=== PATIENT | male | born 1960 | race Caucasian/White ===

== ENCOUNTER 2017-12-18 12:03 | Outpatient (REF) | payer BC, OTHER, SELFPAY ==
[2017-12-19 10:39] LABS: PSA, Diagnostic 4.6 ng/ml (0-3.5)
[2017-12-19 12:04] LABS: Hepatitis C Ab w Rflx HCV PCR Negative (NEGAT)
== END 2017-12-18 12:23 ==
LOC: NCHCN 12:03
PROVIDERS: Visit Provider Nurse Practitioner
DX: C61 Malignant neoplasm of prostate (principal); Z11.59 Encounter for screening for other viral diseases
CPT/HCPCS: 86803; 84153

== ENCOUNTER 2018-02-04 16:30 | Outpatient (REF) | payer BC, OTHER, SELFPAY | END 2018-02-04 16:50 | LOC: NCHCN 16:30 | PROVIDERS: Visit Provider Nurse Practitioner | DX: C61 Malignant neoplasm of prostate (principal) | CPT/HCPCS: 84154 ==

== ENCOUNTER 2018-07-03 01:28 | Outpatient (CLI) | payer BC, OTHER, SELFPAY ==
--- NOTE | 2018-07-03 07:30 | MERGE_ITS ---
*[facility]* *[facility]* [address] [place] [address] Date of study: 07/03/2018 Transthoracic Echocardiography M-mode, complete 2D, complete spectral Doppler, and color Doppler *STUDY CONCLUSIONS* Impressions: Functionally bicuspid aortic valve with mod/severe regurgitation. Summary: 1. Left ventricle: The cavity size was normal. Wall thickness was at the upper limits of normal. Systolic function was at the lower limits of normal. The estimated ejection fraction was 50-55%. Wall motion was normal; there were no regional wall motion abnormalities. 2. Aortic valve: Mildly calcified annulus. Functionally bicuspid; mildly thickened, mildly calcified leaflets; fusion of the right-left coronary commissure. Valve mobility was mildly restricted. Transvalvular velocity was minimally increased. There was very mild stenosis. There was moderate to severe regurgitation. Valve area (VTI): 1.8cm^2. Valve area (Vmax): 1.6cm^2. Valve area (Vmean): 1.7cm^2. 3. Mitral valve: There was mild regurgitation. 4. Left atrium: The atrium was moderately dilated. 5. Right ventricle: The cavity size was mildly dilated. Wall thickness was normal. Systolic function was normal. 6. Pulmonic valve: Peak gradient (S): 3.2mm Hg. 7. Pulmonary arteries: PA peak pressure: 33mm Hg (S). *PATIENT PRESENTATION* Height: 170.2cm ((67in) ) S/D Pressure: 136 / 75 Weight: 93kg ((204.6lb) ) BSA: 2.13m^2 Test start time: 07:45 AM. Test stop time: 08:45 AM. PERFORMING Unknown ORDERING Maya Rubin REFERRING Maya Rubin PERFORMING [facility] [employer]PER[employer] HELPER RT Lissa Pagan)(CT), [facility] *PROCEDURE DATA* Procedure information: The patient was identified by two identifiers. This study was interpreted by [facility]. Pertinent images and digital data are archived for permanent storage and are available for subsequent review. No prior study was available for comparison. Study status: Routine. Transthoracic echocardiography. M-mode, complete 2D, complete spectral Doppler, and color Doppler. A Transthoracic Echocardiogram was performed. Scanning was performed from the parasternal, apical, subcostal, and suprasternal notch acoustic windows. Images were obtained using an [id number] cardiac ultrasound machine. Image quality was adequate. Study completion: The patient tolerated the procedure well. History: PMH: Murmur r01.1 *CARDIAC ANATOMY* Left ventricle: The cavity size was normal. Wall thickness was at the upper limits of normal. Systolic function was at the lower limits of normal. The estimated ejection fraction was 50-55%. Wall motion was normal; there were no regional wall motion abnormalities. Aortic valve: Mildly calcified annulus. Functionally bicuspid; mildly thickened, mildly calcified leaflets; fusion of the right-left coronary commissure. Valve mobility was mildly restricted. Doppler: Transvalvular velocity was minimally increased. There was very mild stenosis. There was moderate to severe regurgitation. VTI ratio of LVOT to aortic valve: 0.44. Valve area (VTI): 1.8cm^2. Indexed valve area (VTI): 0.8cm^2/m^2. Peak velocity ratio of LVOT to aortic valve: 0.4. Valve area (Vmax): 1.6cm^2. Indexed valve area (Vmax): 0.8cm^2/m^2. Mean velocity ratio of LVOT to aortic valve: 0.43. Valve area (Vmean): 1.7cm^2. Indexed valve area (Vmean): 0.8cm^2/m^2. Mean gradient (S): 16.3mm Hg. Peak gradient (S): 31.2mm Hg. Aorta: Aortic root: The aortic root was mildly dilated. Ascending aorta: The ascending aorta was at upper normal limits. Aortic arch: The aortic arch was normal in size. Mitral valve: Mildly thickened leaflets. Mobility was not restricted. Doppler: Transvalvular velocity was within the normal range. There was no evidence for stenosis. There was mild regurgitation. Valve area by pressure half-time: 2.9cm^2. Indexed valve area by pressure half-time: 1.3cm^2/m^2. Left atrium: The atrium was moderately dilated. Right ventricle: The cavity size was mildly dilated. Wall thickness was normal. Systolic function was normal. Pulmonic valve: Doppler: Transvalvular velocity was within the normal range. There was no evidence for stenosis. There was trivial regurgitation. Peak gradient (S): 3.2mm Hg. Tricuspid valve: Structurally normal valve. Doppler: Transvalvular velocity was within the normal range. There was no evidence for stenosis. There was mild regurgitation. Pulmonary artery: Pulmonary systolic pressure was at the upper limits of normal. Right atrium: The atrium was normal in size. Pericardium: There was no pericardial effusion. Systemic veins: Inferior vena cava: Well visualized. The vessel was patent and mildly dilated in size. The respirophasic diameter changes were in the normal range (greater than or equal to 50%), consistent with normal central venous pressure. Baseline ECG: Bradycardia. Measurements Left ventricle Value Reference LV ID, ED, PLAX 5.6 cm 3.5 - 6.0 LV ID, ES, PLAX 3.9 cm 2.1 - 4.0 LV PW thickness, ED, PLAX 1.0 cm LV end-diastolic volume, 1-p A2C 165 ml LV ejection fraction, 1-p A2C 53 % LV end-diastolic volume, 1-p A4C 192 ml LV ejection fraction, 1-p A4C 52 % LV e', lateral 0.124 m/sec LV E/e', lateral 5 LV e', medial 0.069 m/sec LV E/e', medial 9 LV e', average 0.097 m/sec LV E/e', average 6 Ventricular septum Value Reference IVS thickness, ED, PLAX 1.0 cm LVOT Value Reference LVOT ID, A-P 2.3 cm LVOT area 4.1 cm^2 LVOT peak velocity, S 1.11 m/sec LVOT mean velocity, S 0.81 m/sec LVOT VTI, S 28.1 cm LVOT peak gradient, S 5 mm Hg LVOT mean gradient, S 2.9 mm Hg Stroke volume (SV), LVOT DP 115 ml Stroke index (SV/bsa), LVOT DP 54 ml/m^2 Aortic valve Value Reference Aortic valve peak velocity, S 2.8 m/sec Aortic valve mean velocity, S 1.91 m/sec Aortic valve VTI, S 64.0 cm Aortic mean gradient, S 16.3 mm Hg Aortic peak gradient, S 31.2 mm Hg VTI ratio, LVOT/AV 0.44 Aortic valve area, VTI 1.8 cm^2 Velocity ratio, peak, LVOT/AV 0.4 Aortic valve area, peak velocity 1.6 cm^2 Velocity ratio, mean, LVOT/AV 0.43 Aortic valve area, mean velocity 1.7 cm^2 Aortic valve area/bsa, mean velocity 0.8 cm^2/m^2 Aortic regurg peak velocity 1.08 m/sec Aortic regurg deceleration 355 cm/s^2 Aortic regurg deceleration time 360 ms Aortic regurg pressure half-time 104 ms Aortic regurg peak gradient 4.7 mm Hg Aorta Value Reference Aortic root ID, ED 4.0 cm Ascending aorta ID, A-P, S 3.6 cm Aortic arch ID, innominate-LCCA 3.0 cm 2.0 - 3.6 Left atrium Value Reference LA ID, A-P, ES 4.6 cm LA ID/bsa, A-P 2.2 cm/m^2 <=2.2 LA area, ES, A4C (H) 26.9 cm^2 8.8 - 23.4 LA area, ES, A2C 21 cm^2 LA volume/bsa, ES, 1-p A4C 51 ml/m^2 LA volume, ES, 2-p 77 ml LA volume/bsa, ES, 2-p 36 ml/m^2 LA/aortic root ratio 1.16 Mitral valve Value Reference Mitral E-wave peak velocity 0.61 m/sec Mitral A-wave peak velocity 0.5 m/sec Mitral deceleration time (H) 266 ms 150 - 230 Mitral pressure half-time 77 ms Mitral E/A ratio, peak 1.22 Mitral valve area, PHT, DP 2.9 cm^2 Mitral regurg vena contracta 0.8 cm Pulmonary veins Value Reference Pulmonary vein peak velocity, S 0.61 m/sec Pulmonary vein peak velocity, D 0.5 m/sec Pulmonary vein velocity ratio, peak, 1.22 S/D Pulmonary vein A-wave reversal peak 0.3 m/sec velocity Pulmonary arteries Value Reference PA pressure, S, DP (H) 33 mm Hg <=30 Tricuspid valve Value Reference Tricuspid regurg peak velocity 2.6 m/sec Tricuspid peak RV-RA gradient 26.5 mm Hg Right atrium Value Reference RA area, ES, A4C 13.9 cm^2 8.3 - 19.5 Systemic veins Value Reference Estimated CVP 10 mm Hg Right ventricle Value Reference RV pressure, S, DP (H) 37 mm Hg <=30 Pulmonic valve Value Reference Pulmonic peak gradient, S 3.2 mm Hg Legend: (L) and (H) jenifer values outside specified reference range. I have personally reviewed the images and have reviewed and edited the reported findings. Electronically signed by Shaka Shukla 07/03/2018 11:17
== END 2018-07-03 01:48 ==
PROVIDERS: PCP Family Medicine; Visit Provider Family Medicine
DX: R01.1 Cardiac murmur, unspecified (principal); I35.2 Nonrheumatic aortic (valve) stenosis with insufficiency
CPT/HCPCS: 93306

== ENCOUNTER 2018-11-30 19:05 | Emergency (ER) | payer BC, OTHER, SELFPAY ==
[2018-11-30 19:11] VITALS: BP 151/76; PULSE 70; RESP 16; TEMP 36.6; O2SAT 97
--- NOTE | 2018-11-30 20:24 | ED.GENADUL_ITS ---
Discharge Plan Disposition Patient Disposition: HOME Condition: Improving Discharge Details Chief Complaint: EarProblem Clinical Impression: Acute foreign body of right ear canal Primary Care Provider: Maya Rubin ED Provider: Gilmar Sin Home Meds and New Rx's Prescriptions: No Action No Known Home Meds RF: 0 Discharge Instructions Instructions: Ear Foreign Body (ED) Additional Instructions: For any further discomfort you may use your typical [id number] pain medication just take as directed on packaging. Follow-up with your primary care provider as needed for reassessment and feel free to return for any new or significant worsening symptoms Referrals: Maya Rubin [Primary Care Provider] - (As needed for reassessment) Discharge Data Discharge Date/Time-TO BE ENTERED AT DEPARTURE: 11/30/18 20:45 Medical Decision Making Patient presenting to the emergency department for chief complaint of bug in right ear. Patient states just prior to arrival [place] and a bug flew in his right ear. Patient denies any other symptoms. Physical exam shows what appears to be a moth in the right ear. 2 mL's of 2% lidocaine were injected to the ear and allowed to set until patient was asymptomatic. Suction and irrigation was utilized to remove the bug that appears to be moth like. After removal there is does appear to be a slight abrasion to the ear canal but otherwise TM is intact and no other abnormalities noted. I feel patient is able to be safely discharged with no further treatment but patient was encouraged to return for any new or worsening symptoms otherwise follow-up primary care provider. After discussion of diagnosis and plan of care patient has no further needs, questions, or concerns and states clear understanding to return to the emergency department for any worsening symptoms. HPI General Mode of arrival: ambulatory . Date/Time Provider Initiated Documentation: 11/30/18 19:30 . Limitations to Documentation: no limitations . Information obtained by: patient . History of Present Illness 58 year old M presents to the emergency department with the chief complaint of bug in right ear , described as moderate, with intensity rated at 5. Quality is described as sharp, and is localized to the right (ear). Patient started experiencing this hour(s) (1) and it has been constant. No relieving factors improve symptom(s), No exacerbating factors reported . Patient notes no other symptoms.. Patient did receive the following treatments prior to arrival, none Related Data Home Medications Medication Instructions Recorded Confirmed Unknown [No Known Home Meds] 11/30/18 11/30/18 Allergies Allergy/AdvReac Type Severity Reaction Status Date / Time No Known Allergies Allergy Unverified 11/30/18 19:13 General Stated Complaint: EarProblem GEOVANNY: 4 Review of Systems ENT Ears, Nose, Mouth, and Throat: Reports as per HPI, Denies dizziness, Denies ear discharge and Reports otalgia Neurologic Neurologic: Denies dizziness [facility] Medical History Heart murmur (Acute) Surgical History Colonoscopy - MAC (02/08/16) History of appendectomy (Chronic) History of right knee joint replacement (Acute) [facility] (12/15/14) RACHAEL GRAY Social History Smoking/Tobacco Use Status: Never Alcohol Intake: current Alcohol Intake frequency: a few times a month Drug use: Never Exam Const General: cooperative, no acute distress and not ill appearing Orientation: alert and awake HENMT Ears: hearing grossly normal bilaterally, external ears normal and EAC abnormal foreign body on the right (Visible insect) Mouth: moist mucous membranes Resp Effort & Inspection: normal respiratory effort, able to speak in complete sentences and no respiratory distress Course Vital Signs Vital signs: Vital Signs Temperature 36.6 C 11/30/18 19:11 Pulse 70 11/30/18 19:11 Respiratory Rate 16 11/30/18 19:11 Blood Pressure 151/76 H 11/30/18 19:11 Pulse Oximetry 97 11/30/18 19:11 Temperature 36.6 C 11/30/18 19:11 Temperature Source Skin 11/30/18 19:11 Pulse 70 11/30/18 19:11 Respiratory Rate 16 11/30/18 19:11 Respiratory Effort Non-Labored 11/30/18 19:14 Blood Pressure 151/76 H 11/30/18 19:11 Pulse Oximetry 97 11/30/18 19:11 Pain Level 0 11/30/18 19:14
[2018-11-30 20:37] VITALS: BP 151/76; PULSE 70; RESP 16; O2SAT 97
== END 2018-11-30 20:45 | disposition home or self-care (01) ==
PROVIDERS: Emergency Provider Nurse Practitioner Family; PCP Family Medicine
DX: T16.1XXA Foreign body in right ear, initial encounter (principal)
CPT/HCPCS: 99282

== ENCOUNTER 2019-02-17 03:24 | Outpatient (CLI) | payer BC, OTHER, SELFPAY ==
[2019-02-17 13:17] LABS: CREATININE 0.77 mg/dL (0.70-1.30)
--- NOTE | 2019-02-17 13:42 | DI.CT_ITS ---
EXAM: CT BRAIN CTA CLINICAL HISTORY: ANEURYSM SCREENING, BICUSPID AORTIC VALVE, Q23.1 TECHNIQUE: Imaging Protocol: Axial CT angiography was performed with multi-slice acquisition and mu lti-planar and/or 3D reconstructions. CONTRAST MATERIAL: Intravenous: Omnipaque 350 Contrast volume:structured data in ml Contrast route:I V - Oral: yes / no COMPARISON: No exams were available for comparison FINDINGS: Carotid Arteries: Petrous: Normal. Cavernous: Normal. Cerebral: Normal. Middle Cerebral Arteries: Right: No aneurysm, occlusion or significant stenosis. Left: No aneurysm, occlusion or significant stenosis. Anterior Cerebral Arteries: Right: No aneurysm, occlusion or significant stenosis. Left: No aneurysm, occlusion or significant stenosis. Posterior cerebral arteries: Right: No aneurysm, occlusion or significant stenosis. Left: No aneurysm, occlusion or significant stenosis. Vertebral Arteries: Right: No aneurysm, occlusion or significant stenosis. Left: No aneurysm, occlusion or significant stenosis. Basilar Artery: No aneurysm, occlusion or significant stenosis. Small Vessels: No evidence of beading. CT head: The ventricles and sulci are consistent with the patient's age. Ventricles are intact. The basilar cisterns are patent. No acute intracranial hemorrhage, midline shift or mass effect is identified. There is mucosal thickening in the ethmoid air cells and maxillary sinuses bilaterally. There is muc osal thickening in the left sphenoid sinus. The mastoid air cells are well pneumatized. The calvari um is intact. IMPRESSION: 1. Normal CTA examination of the [place]. No evidence of a cerebral aneurysm. 2. No acute intracranial process. 3. Paranasal sinusitis. DATA REPOSITORY: All CT scans at this facility are submitted to the National Radiology Data Registry (NRDR) Dose Index Registry (DIR) with the [employer] (ACR). RADIATION OPTIMIZATION: All CT scans at this facility use at least one of these dose optimization te chniques: automated exposure control; mA and/or kV adjustment per patient size (includes targeted exa ms where dose is matched to clinical indication); or iterative reconstruction.
[2019-02-17] MEDS: Omnipaque 350 MG/ML 100 ML BTL IJ (14:04)
--- NOTE | 2019-02-17 15:01 | DI.VRAD_ITS ---
PROCEDURE INFORMATION: Exam: CT Angiography Head With Contrast Exam date and time: 02/17/2019 2:10 PM Age: 58 years old Clinical indication: Other: Aneurysm screening bicuspid aortic valve TECHNIQUE: Imaging protocol: Computed tomography angiography of the head with intravenous contrast. 3D rendering: MIP and/or 3D reconstructed images were created by the technologist. Radiation optimization: All CT scans at this facility use at least one of these dose optimization techniques: automated exposure control; mA and/or kV adjustment per patient size (includes targeted exams where dose is matched to clinical indication); or iterative reconstruction. Contrast material: OMNI 350; Contrast volume: 70 ml; Contrast route: IV; COMPARISON: No relevant prior studies available. FINDINGS: Right internal carotid artery: Unremarkable. Intracranial segment is patent with no significant stenosis. No aneurysm. Right anterior cerebral artery: Unremarkable. No occlusion or significant stenosis. No aneurysm. Right middle cerebral artery: Unremarkable. No occlusion or significant stenosis. No aneurysm. Right posterior cerebral artery: Unremarkable. No occlusion or significant stenosis. No aneurysm. Right vertebral artery: Unremarkable. No occlusion or significant stenosis. No aneurysm. Left internal carotid artery: Unremarkable. Intracranial segment is patent with no significant stenosis. No aneurysm. Left anterior cerebral artery: Unremarkable. No occlusion or significant stenosis. No aneurysm. Left middle cerebral artery: Unremarkable. No occlusion or significant stenosis. No aneurysm. Left posterior cerebral artery: Unremarkable. No occlusion or significant stenosis. No aneurysm. Left vertebral artery: Unremarkable. No occlusion or significant stenosis. No aneurysm. Basilar artery: Unremarkable. No occlusion or significant stenosis. No aneurysm. IMPRESSION: No acute findings. No cerebral aneurysm. PROCEDURE INFORMATION: Exam: CT Head Without Contrast Exam date and time: 02/17/2019 2:10 PM Age: 58 years old Clinical indication: Other: Aneurysm screening bicuspid aortic valve TECHNIQUE: Imaging protocol: Computed tomography of the head without contrast. COMPARISON: No relevant prior studies available. FINDINGS: Brain: Normal. No hemorrhage. Unremarkable white matter. No mass effect. Ventricles: Normal. No ventriculomegaly. Bones/joints: Unremarkable. No acute fracture. Sinuses: There is mucosal thickening in the left sphenoid the maxillary sinuses. Mastoid air cells: Visualized mastoid air cells are well aerated. Soft tissues: Unremarkable. IMPRESSION: No acute intracranial abnormality. Dictated and Authenticated by: Galilea Theodore MD. Ordering:AUSTIN Elmore MD
== END 2019-02-17 03:44 ==
PROVIDERS: PCP Family Medicine; Visit Provider Internal Medicine Cardiovascular Disease
DX: I35.2 Nonrheumatic aortic (valve) stenosis with insufficiency (principal); I10 Essential (primary) hypertension; J32.8 Other chronic sinusitis; Z13.89 Encounter for screening for other disorder
CPT/HCPCS: 36415; 70496; 82565; J3490

== ENCOUNTER 2019-05-14 14:19 | Outpatient (REF) | payer BC, OTHER, SELFPAY ==
[2019-05-14 20:47] LABS: ALT 30 U/L (16-63); AST 21 U/L (15-37); Albumin 4.2 g/dL (3.4-5.0); Alkaline Phosphatase 107 U/L (46-116); Anion Gap 10.5 mmol/L (3-11); BUN 20 mg/dL (7-18); Bilirubin, Total 0.6 mg/dL (0.2-1.0); CO2 24.5 mmol/L (21.0-32.0); CREATININE 1.06 mg/dL (0.70-1.30); Calcium 9.3 mg/dL (8.5-10.1); Calculated LDL 105 mg/dL (<100); Chloride 101 mmol/L (98-107); Cholesterol 194 mg/dL (<200); Glucose 87 mg/dL (74-106); HDL Cholesterol 75 mg/dL (40-60); Potassium 4.4 mmol/L (3.5-5.1); Sodium 136 mmol/L (136-145); Total Protein 7.8 g/dL (6.4-8.2); Triglyceride 74 mg/dL (<150)
== END 2019-05-14 14:39 ==
LOC: NCHCN 14:19
PROVIDERS: PCP Family Medicine; Visit Provider Family Medicine
DX: Z00.00 Encounter for general adult medical examination without abnormal findings (principal); C61 Malignant neoplasm of prostate; Z13.220 Encounter for screening for lipoid disorders; Z13.228 Encounter for screening for other metabolic disorders
CPT/HCPCS: 80053; 80061; 84153

== ENCOUNTER 2019-07-16 02:58 | Outpatient (CLI) | payer BC, OTHER, SELFPAY ==
--- NOTE | 2019-07-16 07:32 | DI.US_ITS ---
APPROVED REPORT EXAM: Comprehensive 2D, Doppler, and color-flow Echocardiogram Patient Location: Out-Patient Research Interviewer: Em Renee RDCS (AE) Indications: Bicuspid Aortic Valve, Aortic Regurgitation Other Information Study Quality: Good Conclusion Left Ventricle : The left ventricle is normal size. The left ventricular systolic function is normal. The left ventricular ejection fraction is within the normal range. There is normal left ventricular wall thickness. There is normal LV segmental wall motion. Diastolic function is indeterminate. LVEF i s 55%. Right Ventricle : The right ventricle is normal size. The right ventricular systolic function is norm al. The RVSP is 19.9mmHg. Atria : The left atrium size is normal. The right atrium size is normal. Aortic Valve : The Aortic valve is sclerotic. Aortic valve is bicuspid. Mild aortic stenosis. Moderat e aortic regurgitation. Mitral Valve : There is mitral annular calcification. No evidence of mitral valve stenosis. Trace angie ral regurgitation. Tricuspid Valve : The tricuspid valve is normal in structure. There is no tricuspid valve stenosis. T race to mild tricuspid regurgitation. Great Vessels : IVC is normal in size and collapses >50% with inspiration. The aortic root is dilated (4.1cm) The ascending aorta is mildly dilated. Echocardiogram dated 07/03/2017: There is no significant change. Wall motion Left Ventricle The left ventricle is normal size. The left ventricular systolic function is normal. The left ventric ular ejection fraction is within the normal range. There is normal left ventricular wall thickness. T here is normal LV segmental wall motion. Diastolic function is indeterminate. There is no ventricular septal defect visualized. LVEF is 55%. Right Ventricle The right ventricle is normal size. The right ventricular systolic function is normal. The RVSP is 19 .9mmHg. Atria The left atrium size is normal. The right atrium size is normal. The interatrial septum is intact wit h no evidence for an atrial septal defect. Aortic Valve The Aortic valve is sclerotic. Aortic valve is bicuspid. Mild aortic stenosis. Moderate aortic regurg itation. Mitral Valve There is mitral annular calcification. No evidence of mitral valve stenosis. Trace mitral regurgitati on. Tricuspid Valve The tricuspid valve is normal in structure. There is no tricuspid valve stenosis. Trace to mild tricu spid regurgitation. Pulmonic Valve The pulmonary valve is normal in structure. There is no pulmonic valvular stenosis. Trace pulmonic re gurgitation. Great Vessels The aortic root is dilated (4.1cm) The ascending aorta is mildly dilated. IVC is normal in size and c ollapses >50% with inspiration. Pericardium There is no pericardial effusion. There is no pleural effusion. 2D Dimensions IVSD d PLAX 0.96 cm M: 0.6-1.2 LV Vol A2C d MOD 191.2 mL LVPW d PLAX 0.99 cm M: 0.6 - 1.2 LV Vol A4C d MOD 150.9 mL LVID d PLAX 5.45 cm M: 4.2 - 5.8 LA vol/ BSA A2C s A-L 40.6 mL/m2 LVDs 4.15 cm M: 2.5 - 4.0 LA vol/ BSA A4C s A-L 36.4 mL/m2 Ao Root d 4.10 cm M: 3.1 - 3.7 LA Vol/ BSA Biplane s A-L 41.6 mL/m2 RA Area A4C 15.44 cm2 LA Area A4C s MOD 23.50 cm2 RA Vol/ BSA A4C s A-L 19.9 mL/m2 LA Area A2C s MOD 22.93 cm2 Ao Asc Diam d 3.80 cm M: 2.6 - 3.4 LV EF A4C MOD 53.5 % LV EF Teichholz 45.8 % LV EF A2C MOD 51.9 % LVEF (Torres's) 52.12 % M: 52 - 72 LV EF Biplane MOD 52.1 % LV Volume 131.97 mL M: 62 - 150 SV 92.80 mL LV Volume Index 65.00 mL/m2 M: 34 - 74 SV Index 45.40 mL/m2 LV Vol Biplane MOD 176.9 mL FS 23.05 % M-Mode TAPSE 2.03 cm (M/F) >1.7 LV Diastology MV E' medial 0.069 (>0.07 m/s) E/A Ratio 0.8 LV E/e MED 7.75 (<14) MV E Vmax 0.54 (0.4-1.3 m/s) MV E' lateral 0.083 (>0.1 m/s) MV A Vmax 0.65 (0.4-1.3 m/s) LV E/e LAT 6.45 (<14) MV E/A Ratio 0.78 MV E/E' medial 7.76 MV E/E' lateral 6.47 Aortic Valve LVOT Area 2.96 cm2 AoV Area Vmax 1.52 cm2 LVOT Vmax 1.24 m/s AoV Area/ BSA (Vmax) 0.75 cm2/m2 LVOT Mean Chuy. 0.83 m/s BREONNA Mean Chuy. 1.50 cm2 LVOT Peak Grad 6.1 mmHg BREONNA Mean Chuy. Index 0.74 cm2/m2 LVOT Mean Grad 3.2 mmHg AR DT 2243 msec LVOT VTI 0.284 m AR PHT 650 msec LVOT Diam s 1.90 cm AoV Vmax 2.40 m/s Velocity Ratio 0.51 AoV Mean Chuy. 1.62 m/s AoV Peak Grad 23.0 mmHg LVOT SV 84.05 mL AoV Mean Grad 12.1 mmHg AoV VTI 0.532 m AoV Area VTI 1.58 cm2 AoV Area/ BSA (VTI) 0.78 cm/m2 Mitral Valve MV DT 332 (160-240 msec) MV PHT 96 msec MV Area PHT 2.29 cm2 Pulmonary Valve PV Vmax 0.80 (0.5-1.5 m/s) RVOT Peak Gr. 1.89 mmHg PV Peak Grad 2.5 mmHg RVOT Mean Gr. 0.90 mmHg PV Mean Grad 1.6 mmHg RVOT VTI 0.153 m PV VTI 0.228 m RVOT Vmax 0.69 m/s Tricuspid Valve TR Peak Grad 16.8 mmHg TR Vmax 2.05 m/s RA Pressure 3.00 mmHg RVSP (TR) 19.9 mmHg
== END 2019-07-16 03:18 ==
PROVIDERS: PCP Family Medicine; Visit Provider Internal Medicine Cardiovascular Disease
DX: I35.1 Nonrheumatic aortic (valve) insufficiency (principal); I36.1 Nonrheumatic tricuspid (valve) insufficiency; I10 Essential (primary) hypertension
CPT/HCPCS: 93306

== ENCOUNTER 2020-01-19 04:15 | Outpatient (CLI) | payer BC, OTHER, SELFPAY ==
[2020-01-20 17:46] LABS: Free PSA/PSA Ratio 0.08 ratio
== END 2020-01-19 04:35 ==
PROVIDERS: PCP Family Medicine; Visit Provider Nurse Practitioner Gerontology
DX: R97.20 Elevated prostate specific antigen [PSA] (principal); Z85.46 Personal history of malignant neoplasm of prostate
CPT/HCPCS: 36415; 84154

== ENCOUNTER 2020-04-07 13:48 | Outpatient (REF) | payer BC, OTHER, SELFPAY ==
[2020-04-09 09:04] LABS: COVID-19 RT-PCR UVMMC Result Negative (Negative)
== END 2020-04-07 13:49 | disposition home or self-care (01) ==
LOC: NCHCN 13:48
PROVIDERS: PCP Family Medicine; Visit Provider Family Medicine
DX: Z20.822 Contact with and (suspected) exposure to COVID-19 (principal)
CPT/HCPCS: U0003

== ENCOUNTER 2020-06-01 22:18 | Outpatient (REF) | payer BC, OTHER, SELFPAY ==
[2020-06-03 16:33] LABS: COVID-19 RT-PCR UVMMC Result Negative (Negative)
== END 2020-06-01 22:19 | disposition home or self-care (01) ==
LOC: NCHCN 22:18
PROVIDERS: PCP Family Medicine; Visit Provider Family Medicine
DX: Z20.822 Contact with and (suspected) exposure to COVID-19 (principal)
CPT/HCPCS: U0003

== ENCOUNTER 2020-07-21 02:35 | Outpatient (CLI) | payer BC, OTHER, SELFPAY ==
[2020-07-21 18:23] LABS: PSA, Diagnostic 6.8 ng/mL (0.0-4.5)
== END 2020-07-21 02:36 | disposition home or self-care (01) ==
LOC: LBO 02:35
PROVIDERS: PCP Family Medicine; Visit Provider Nurse Practitioner Gerontology
DX: R97.20 Elevated prostate specific antigen [PSA] (principal)
CPT/HCPCS: 36415; 84153

== ENCOUNTER 2020-08-08 13:22 | Outpatient (RCR) | payer BC, OTHER, SELFPAY ==
--- NOTE | 2020-08-08 13:30 | HOLTER_ITS ---
APPROVED REPORT This is a 48-hour Holter monitor Predominant rhythm was sinus with an average heart rate of 75. Minimum was 55, maximum 108 There were rare atrial premature beats. There were 2 brief self-limited atrial runs, the longest of which was 6 beats in duration There were frequent ventricular ectopic beats. They comprised 10.2% of total beats. There were occa sional couplets. There were 3 runs of nonsustained ventricular tachycardia, the longest of which was 4 beats in duration There was no atrial fibrillation, no high-grade AV block, no pauses greater than 3 seconds No patient symptoms were reported
== END 2020-08-24 23:59 | disposition home or self-care (01) ==
LOC: RT 13:22
PROVIDERS: PCP Family Medicine; Visit Provider Family Medicine
DX: I49.3 Ventricular premature depolarization (principal); I49.1 Atrial premature depolarization; I47.2 Ventricular tachycardia
CPT/HCPCS: 93225; 93226

== ENCOUNTER 2020-08-18 02:56 | Outpatient (CLI) | payer BC, OTHER, SELFPAY ==
--- NOTE | 2020-08-18 | DI.RAD_ITS ---
Exam(s) XR SHOULDER LT COMPLETE 2+V EXAM: XR SHOULDER LT COMPLETE 2+V CLINICAL HISTORY: LT SHOULDER PAIN, M25.512. TECHNIQUE: 2D digital imaging was performed. COMPARISON: No exams were available for comparison FINDINGS: No evidence of acute fracture nor dislocation. There are significant degenerative changes in the gle nohumeral joint. There osteophytes on the inferior articular surface of the humeral head and osseous glenoid. Also degenerative subarticular cysts. There is a tiny 1 millimeter calcific density in th e superior aspect of the glenohumeral joint. No calcifications in the more lateral subacromial space . There also degenerative changes in the AC joint. No lytic osseous lesions identified. IMPRESSION: DATA REPOSITORY: RADIATION DOSE DELIVERED:
== END 2020-08-18 03:16 ==
LOC: DI 02:57
PROVIDERS: PCP Family Medicine
DX: M25.512 Pain in left shoulder (principal)
CPT/HCPCS: 73030

== ENCOUNTER 2021-01-16 03:49 | Outpatient (CLI) | payer BC, OTHER, SELFPAY ==
[2021-01-16 18:35] LABS: PSA, Diagnostic 6.3 ng/mL (0.0-4.5)
== END 2021-01-16 03:50 | disposition home or self-care (01) ==
LOC: LBO 03:49
PROVIDERS: PCP Family Medicine; Visit Provider Nurse Practitioner Gerontology
DX: C61 Malignant neoplasm of prostate (principal); R97.20 Elevated prostate specific antigen [PSA]
CPT/HCPCS: 36415; 84153

== ENCOUNTER 2021-02-02 02:13 | Outpatient (CLI) | payer BC, OTHER, SELFPAY ==
--- NOTE | 2021-02-02 10:09 | DI.US_ITS ---
APPROVED REPORT EXAM: Comprehensive 2D, Doppler, and color-flow Echocardiogram Patient Location: Out-Patient Division Road Supervisor: Em Renee RDCS (AE) Indications: Bicuspid aortic valve Other Information Study Quality: Adequate Conclusion Normal left ventricular wall thickness and chamber size. Estimated ejection fraction is 60%. Wall m otion is normal Normal right ventricular size and systolic function Both atria are normal in size Aortic valve is bicuspid and mildly sclerotic. There is mild aortic stenosis. There is moderate aor tic regurgitation Normal mitral valve with trace regurgitation Normal tricuspid valve with trace regurgitation. Estimated right ventricular systolic pressure is 25 mmHg Dilated aortic root and ascending aorta Wall motion Left Ventricle The left ventricle is normal size. The left ventricular systolic function is normal. The left ventric ular ejection fraction is within the normal range. There is normal left ventricular wall thickness. T here is normal LV segmental wall motion. There is no ventricular septal defect visualized. LVEF is 59 %. Right Ventricle The right ventricle is normal size. The right ventricular systolic function is normal. The RVSP is 25 .0 mmHg. Atria The left atrium size is normal. The right atrium size is normal. The interatrial septum is intact wit h no evidence for an atrial septal defect. Aortic Valve The Aortic valve is mildly sclerotic. Aortic valve is bicuspid. Mild aortic stenosis. Peak aortic sherman ve gradient is 19.9mmHg. Highest mean aortic valve gradient is 10.9_mmHg. Calculated BREONNA by the angelo nuity equation is 1.68cm2. Moderate aortic regurgitation. Mitral Valve The mitral valve is normal in structure. No evidence of mitral valve stenosis. Trace mitral regurgita tion. Tricuspid Valve The tricuspid valve is normal in structure. There is no tricuspid valve stenosis. Trace tricuspid reg urgitation. Pulmonic Valve The pulmonary valve is normal in structure. There is no pulmonic valvular stenosis. Trace pulmonic re gurgitation. Great Vessels Aortic root is dilated.4.0 cm The ascending aorta is mildly dilated.3.81 cm Aortic arch is normal in caliber. IVC is normal in size and collapses >50% with inspiration. Pericardium There is no pericardial effusion. 2D Dimensions IVSD d PLAX 1.01 cm M: 0.6-1.2 LV Vol A2C d MOD 157.7 mL LVPW d PLAX 1.02 cm M: 0.6 - 1.2 LV Vol A4C d MOD 145.3 mL LVID d PLAX 5.52 cm M: 4.2 - 5.8 LA vol/ BSA A2C s A-L 38.5 mL/m2 LVDs 3.75 cm M: 2.5 - 4.0 LA vol/ BSA A4C s A-L 22.9 mL/m2 Ao Root d 4.00 cm M: 3.1 - 3.7 LA Vol/ BSA Biplane s A-L 29.7 mL/m2 RA Area A4C 16.82 cm2 LA Area A4C s MOD 17.53 cm2 RA Vol/ BSA A4C s A-L 24.2 mL/m2 LA Area A2C s MOD 22.76 cm2 Ao Asc Diam d 3.81 cm M: 2.6 - 3.4 LV EF A4C MOD 59.0 % LV EF Teichholz 59.2 % LV EF A2C MOD 57.9 % LVEF (Torres's) 58.63 % M: 52 - 72 LV EF Biplane MOD 58.6 % LV Volume 113.80 mL M: 62 - 150 SV 89.47 mL LV Volume Index 56.05 mL/m2 M: 34 - 74 SV Index 43.97 mL/m2 LV Vol Biplane MOD 152.6 mL FS 31.75 % M-Mode TAPSE 1.88 cm (M/F) >1.7 LV Diastology MV E' medial 0.069 (>0.07 m/s) E/A Ratio 0.6 LV E/e MED 6.55 (<14) MV E Vmax 0.46 (0.4-1.3 m/s) MV E' lateral 0.098 (>0.1 m/s) MV A Vmax 0.75 (0.4-1.3 m/s) LV E/e LAT 4.65 (<14) MV E/A Ratio 0.58 MV E/E' medial 6.57 MV E/E' lateral 4.67 Aortic Valve LVOT Area 3.16 cm2 AoV Area Vmax 1.68 cm2 LVOT Vmax 1.18 m/s AoV Area/ BSA (Vmax) 0.82 cm2/m2 LVOT Mean Chuy. 0.83 m/s BREONNA Mean Chuy. 1.66 cm2 LVOT Peak Grad 5.6 mmHg BREONNA Mean Chuy. Index 0.82 cm2/m2 LVOT Mean Grad 3.2 mmHg AR DT 1618 msec LVOT VTI 0.282 m AR PHT 469 msec LVOT Diam s 2.00 cm AoV Vmax 2.23 m/s Velocity Ratio 0.52 AoV Mean Chuy. 1.58 m/s AoV Peak Grad 19.9 mmHg LVOT SV 89.13 mL AoV Mean Grad 10.9 mmHg AoV VTI 0.431 m AoV Area VTI 2.07 cm2 AoV Area/ BSA (VTI) 1.02 cm/m2 Mitral Valve MV DT 454 (160-240 msec) MV PHT 132 msec MV Area PHT 1.67 cm2 MV VTI 0.261 m MV Area VTI 3.42 (4.0-6.0 cm2) Pulmonary Valve PV Vmax 1.14 (0.5-1.5 m/s) RVOT Peak Gr. 1.71 mmHg PV Peak Grad 5.2 mmHg RVOT Mean Gr. 0.85 mmHg PV Mean Grad 2.8 mmHg RVOT VTI 0.141 m PV VTI 0.278 m RVOT Vmax 0.65 m/s Tricuspid Valve TR Peak Grad 21.9 mmHg TR Vmax 2.34 m/s RA Pressure 3.00 mmHg RVSP (TR) 25.0 mmHg
== END 2021-02-02 02:33 ==
PROVIDERS: Visit Provider Internal Medicine Cardiovascular Disease
DX: Q23.1 Congenital insufficiency of aortic valve (principal); I35.1 Nonrheumatic aortic (valve) insufficiency
CPT/HCPCS: 93306

== ENCOUNTER 2021-08-22 02:34 | Outpatient (CLI) | payer BC, OTHER, SELFPAY ==
[2021-08-22 18:10] LABS: PSA, Diagnostic 6.9 ng/mL (<=4.5)
== END 2021-08-22 02:35 | disposition home or self-care (01) ==
LOC: LBO 02:34
PROVIDERS: Visit Provider Nurse Practitioner Gerontology
DX: R97.20 Elevated prostate specific antigen [PSA] (principal)
CPT/HCPCS: 36415; 84153

== ENCOUNTER 2021-11-07 11:51 | Outpatient (CLI) | payer BC, OTHER, SELFPAY ==
--- NOTE | 2021-11-07 11:30 | DI.RAD_ITS ---
Exam(s) XR SHOULDER LT COMPLETE 2+V EXAM: XR SHOULDER LT COMPLETE 2+V CLINICAL HISTORY: left glenohumeral DJD. TECHNIQUE: 2D digital imaging was performed. Two views. COMPARISON: CR XR SHOULDER LT COMPLETE 2+V from 08/18/2020 FINDINGS: BONES: No acute fracture is present. No bony destructive lesion is seen. JOINTS: No dislocation present. Advanced degenerative changes with prominent spurring and subchondra l cyst formation of the glenohumeral joint. Minimal spurring AC joint.. SOFT TISSUE: Normal. IMPRESSION: Stable advanced degenerative changes of the glenohumeral joint.. DATA REPOSITORY: RADIATION DOSE DELIVERED:
== END 2021-11-07 11:52 | disposition home or self-care (01) ==
LOC: DIORS 11:51
PROVIDERS: PCP Family Medicine; Referring Provider Family Medicine; Visit Provider Physician Assistant
DX: M19.012 Primary osteoarthritis, left shoulder (principal)
CPT/HCPCS: 73030

== ENCOUNTER → 2021-12-05 02:17 | Outpatient (CLI) | payer BC, OTHER, SELFPAY ==
--- NOTE | 2021-12-05 06:30 | DI.MRI_ITS ---
Exam(s) MR UPPER JOINT LT WO EXAM: MR UPPER JOINT LT WO CLINICAL HISTORY: Surgery planning,lt rotator cuff tear,m75.102. TECHNIQUE: Multiplanar multisequence MRI was performed. COMPARISON: CR XR SHOULDER LT COMPLETE 2+V from 11/07/[address] UPPER EXTREMITY LT WO from 11/16/2021 FINDINGS: BONES: There is no fracture or contusion pattern. Subchondral cysts are seen in the glenoid and humer al head. JOINTS: Moderate degenerative changes are seen at the acromioclavicular joint. Marked degenerative c hanges are seen at the glenohumeral joint with cartilage loss, joint space narrowing, subchondral cys ts and marginal osteophytes. There is superior subluxation of the humeral head consistent with a chr onic rotator cuff tear. There is a joint effusion. Mild hyperintense soft tissue is seen within the joint which may reflect arthrosis. TENDONS: Supraspinatus: There is a full-thickness tear of the supraspinatus tendon at its midpoint with associ ated tendinosis. Infraspinatus: There is tendinosis of the infraspinatus tendon. Subscapularis: Unremarkable. Teres Minor: Unremarkable. Biceps and Goode: There is tendinosis of the long head of the biceps. MUSCLES: There is mild fatty atrophy of the supraspinatus muscle. GLENOID LABRUM: Degeneration of the posterior superior labrum is noted. A tear cannot be excluded. SOFT TISSUES: Unremarkable. LIGAMENTS: Unremarkable. OTHER: There is fluid in the subacromial subdeltoid bursa consistent with the patient's full-thicknes s tear. IMPRESSION: 1. Full-thickness tear of the supraspinatus tendon. 2. Tendinosis of the supraspinatus, infraspinatus and biceps tendons. 3. Mild fatty atrophy of the supraspinatus muscle. 4. Degeneration and/or tear of the labrum. 5. Marked degenerative changes at the glenohumeral joint. Moderate degenerative changes of the AC lacides int. DATA REPOSITORY:
== END ==
PROVIDERS: PCP Family Medicine; Visit Provider Student in an Organized Health Care Education/Training Program
DX: M75.102 Unspecified rotator cuff tear or rupture of left shoulder, not specified as traumatic (principal); M19.012 Primary osteoarthritis, left shoulder
CPT/HCPCS: 73221

== ENCOUNTER 2022-01-25 06:02 | Day surgery (SDC) | payer BC, OTHER, SELFPAY ==
[2022-01-25] VITALS (12 sets, daily range): BP systolic 88–156; BP diastolic 45–86; PULSE 55–71; RESP 11–23; TEMP 36.2–36.7; O2SAT 95–98; BMI 31.7
[2022-01-25] MEDS: Lactated Ringers 1,000 ML 30 ML IV (06:37)
--- NOTE | 2022-01-25 06:54 | W.ANESPRE ---
General Info Date of Service Date Performed: 01/25/22 Height: 5 ft 8 in Weight: 94.6 kg Body Mass Index (BMI): 31.7 Surgical Procedure: Operation Date: 01/25/22 07:40 Proposed Procedure Side Surgeon p Shoulder Reverse Total Arthroplasty, Biceps Tenodesis and any other indicated procedures Left Aleksander Chaudhry MD Meds Allergies and Home Medications Allergies Allergy/AdvReac Type Severity Reaction Status Date / Time No Known Allergies Allergy Verified 01/25/22 06:20 Home Medication Medication Instructions Recorded metronidazole 0.75 % topical cream 1 applic topical DAILY 08/08/20 aspirin 81 mg tablet,delayed 81 mg PO DAILY prevent blood clot 01/25/22 release 7 days #7 tabs naproxen 250 mg tablet 250 - 500 mg PO BID PRN #40 tabs 01/25/22 oxycodone 5 mg tablet 5 - 10 mg PO Q4H PRN moderate to 01/25/22 severe pain #18 tabs Current Visit Medications: Current Medications Generic Name Dose Route Start Last Admin Trade Name Marco Aq PRN Reason Stop Dose Admin Ringer's Solution 1,000 mls @ 30 mls/hr 01/25/22 06:00 01/25/22 06:37 IV 02/23/22 23:59 30 mls/hr INFUSION LAZARO Administration Cefazolin Sodium/Dextrose 2 gm in 50 mls @ 100 mls/hr 01/25/22 06:00 Ancef Duplex IVPB 01/25/22 16:00 PREOP LAZARO Tranexamic Acid 1,000 mg/ 60 mls @ 360 mls/hr 01/25/22 06:00 Sodium Chloride IVPB 01/25/22 16:00 PREOP LAZARO IV Miscellaneous Supplies 1 each 01/25/22 06:00 Iv Access IV 02/23/22 23:59 DIRECTED LAZARO Sodium Chloride 0 ml 01/25/22 06:00 Normal Saline Flush 10 Ml Syr IV 02/23/22 23:59 PRN PRN Sodium Chloride 0 ml 01/25/22 06:00 Normal Saline 10 Ml Vial IJ 02/23/22 23:59 DIRECTED PRN Sterile Water 0 ml 01/25/22 06:00 Water,Injection,Sterile 10 Ml Vial IJ 02/23/22 23:59 DIRECTED PRN PFSH Active Problems Active Problems: Problem Status Onset Code Tendinitis of long head of biceps brachii of left shoulder M75.22 Left rotator cuff tear M75.102 Arthritis of left glenohumeral joint M19.012 Problems related to lack of adequate sleep Z72.820 Ventricular ectopy I49.3 Elevated PSA R97.20 Bicuspid aortic valve Q23.1 Hypertension I10 Aortic root dilation I77.810 Rosacea L71.9 Medical History Medical History Heart murmur Hemorrhoids Surgical History Surgical History Colonoscopy - MAC (02/08/16) History of appendectomy History of right knee joint replacement (~11/2017) OPEN RIH (12/15/14) RACHAEL GRAY Tobacco Smoking/Tobacco Use Status: Never Alcohol Alcohol Intake: current Alcohol intake frequency: a few times a month Substance Use Substance use: Never Substance use type: does not use Vital Signs and Lab Results Vital Signs Most Recent Vital Signs in EMR: Most Recent Vital Signs Temp Pulse Resp BP Pulse Ox 36.5 C 67 16 149/72 H 97 01/25/22 06:22 01/25/22 06:22 01/25/22 06:22 01/25/22 06:22 01/25/22 06:22 Lab Results Blood Type / Crossmatch: No Data to Display Complete Blood Count: No Data to Display Complete Metabolic Panel: No Data to Display Liver Function Panel: No Data to Display Coagulation Panel: No Data to Display Cardiac Panel: No Data to Display Arterial Blood Gas: No Data to Display Venous Blood Gas: No Data to Display Pancreas Panel: No Data to Display Thyroid Panel: No Data to Display Infectious Disease: No Data to Display Blood Cultures: No Data to Display Toxicology Panel: No Data to Display Anesthesia Assessment and Plan Anesthesia History Personal History: No History of Anesthesia Complications Family History: No Family History of Anesthesia Complications Exercise Tolerance Exercise Tolerance: Metabolic Equivalents>4 Pertinent Negatives Pertinent Negatives: No Symptoms of GERD, No Major Cardiovascular Symptoms or Complaints, No Major Pulmonary Symptoms or Complaints and No History of CVA/TIA Cardiac & Pulmonary Exam Cardiac Exam: Heart Murmur Present Pulmonary Exam: Clear Bilateral Breath Sounds Cardiac and Pulmonary Comment:: Sleep apnea, unable to tolerate CPAP recently due to claustrophobia Implantable Cardiac Device Does patient have a Pacemaker or an ICD?: No Airway Exam Known Difficult Airway: No Mallampati Class: 2 Mouth Opening: Normal (> 3cm) Thyromental Distance: Greater than 3 cm Neck Range of Motion: Full ROM Neck Circumference: Normal Teeth Condition: Normal Dentition ASA Classification ASA Score: ASA 2 Emergency Case?: No NPO Status NPO Status: NPO Clears >2 hours, Solids >8 hours Anesthesia Plan Resuscitation Status: Full Code Anesthesia Technique: General Anesthesia Airway Planned: Endotracheal Tube Pain Management: Surgeon and patient request nerve block Monitors Used: Standard Monitors
[2022-01-25] MEDS: Gabapentin 300 MG CAP PO (07:15)
[2022-01-25] MEDS: Acetaminophen 500 MG TAB 1000 MG PO (07:15)
[2022-01-25] MEDS: Celecoxib 200 MG CAP PO (07:15)
[2022-01-25] MEDS: ceFAZolin 2 GM/50 ML BAG IVPB (07:40)
[2022-01-25] MEDS: Bupivacaine 0.5% Pres-Free W/EPI 30 ML VIAL (08:19)
--- NOTE | 2022-01-25 08:50 | W.ANESNERVE ---
Nerve Block Single Injection Procedure Date and Time Date Performed: 01/25/22 Procedure Start: :22 Location Where Procedure Performed Procedure Location: Day Surgery Unit Reason Performed: Postoperative Analgesia Requesting Provider: Aleksander Chaudhry Timeout Performed Timeout Performed: Yes Monitoring Used ECG, Blood Pressure, SpO2 and See EMR for corresponding vital signs Sterility Sterility: Hand Hygiene, Surgical Cap, Surgical Mask, Sterile Gloves, Sterile Drape/Sheet and Chlorhexidine Sedation Given During Procedure Sedation Given (Indicate Dose Given): Versed IV Dose:: 2 mg Patient Mental Status Patient Mental Status: Sedate with meaningful communication Nerve Block 1st Nerve Block: Laterality: Left Block Type: Interscalene Needle / Catheter Used: 100mm SonoPlex II Local Anesthetic Bolus (Indicate Dose Given): Lidocaine used for local infiltration of skin, Injected in 3-5ml increments after negative blood aspiration and Bupivacaine 0.5% Dose:: 12 ml Additives (Indicate Dose Given): Precedex Dose:: 60 mcg Ultrasound: Sterile probe cover and gel used Ultrasound Image Saved?: Yes Nerve Stimulator: Not Used Paresthesia: Left (Needle repositioned prior to injection) Paresthesia Duration: Transient Procedure Tolerated: No Complications and Patient tolerated well Procedure Outcome: Successful Performed By: Stephanie Álvarez
--- NOTE | 2022-01-25 09:00 | ROE_ITS ---
Date of service: 01/25/22 Time of Service: 07:30 Operative Note Operative Note DATE OF PROCEDURE: 01/25/22 PRE-OP DIAGNOSIS: Left: 1. Glenohumeral arthritis 2. Rotator cuff tear 3. Long head of the biceps tendinopathy POST-OP DIAGNOSIS: same PROCEDURE: Left: 1. Reverse total shoulder arthroplasty, CPT # [address] 2. Open biceps tenodesis, CPT # 41075 The assistant professor of physics was medically required as this procedure involves retraction, protection of neurovascular structures, and manipulation of multiple instruments and implants at the same time, which cannot be done without a skilled assistant professor of physics. SURGEON: Aleksander Chaudhry BARGE MASTER: Elaine Kaufman ANESTHESIA TYPE: Local By Surgeon, General LMA/ETT and Primary Nerve Block Refer to Anesthesia Record ESTIMATED BLOOD LOSS: 100 COMPLICATIONS: None Patient was transported to: PACU Implants: [employer] modular glenoid system baseplate 24 mm, 10 degree full wedge augment [employer] modular glenoid system central post 25 mm [employer] modular glenoid system peripheral locking screws 32 mm inferior, 32 mm superior, 20 mm posterior, 24 mm anterior [employer] modular glenoid system glenosphere 42 +4 mm lateralized [employer] humeral stem 135 degrees size 8 [employer] suture cup size 39 neutral offset [employer] humeral insert size 39 +3 mm / combo 42 Indications: Please see complete medical record for details. Findings: Significant long head biceps tearing with thin remnant present, partial tearing subscapularis, and high-grade supraspinatus tearing, glenohumeral cartilage loss. Large central cavity bone cyst void glenoid. Procedure Description: In the operating room, general anesthesia was induced. The patient was positioned beachchair on the operating room table. All bony prominences were well-padded. Preoperative antibiotics were administered. The shoulder was prepped and draped in the usual sterile fashion for shoulder arthroplasty. The correct patient, procedure, and side of the procedure were all verified prior to incision. The deltopectoral approach was taken to the anterior shoulder. Care was taken to bluntly dissect the interval between the deltoid and pectoralis major muscles and to identify the cephalic vein within its fat stripe. The the vein was mobilized laterally. Subdeltoid space and conjoined tendon were freed of adhesions. The long head of the biceps tendon was identified just lateral to the lesser tuberosity. It was diminutive and probably chronically partially ruptured or torn proximally. The uppermost margin of the pectoralis major te ndon was released from the proximal humerus. The long head of the biceps tendon was tenodesed in situ using SutureTape in a [id number] fashion securing it superior margin the pectoralis major tendon. The biceps tendon was amputated and followed proximally to identify the rotator interval. A subscapularis peel was performed taking care to release the entire intact portion of the tendon in a full-thickness fashion from superior to inferior and lateral to medial while bringing the arm gradually into external rotation. Care was taken to avoid the axillary nerve by only working on the bone inferiorly and medially. The subscapularis was tagged using SutureTape in a Forrest-Chidi fashion and traction used confirm appropriate mobilization of the subscapularis tendon after gentle blunt dissection was used to free up the space anterior and posterior to it. The supraspinatus was identified and debrided of tearing tearing with largely intact infraspinatus. Appropriate coagulation was achieved especially interiorly. The anatomic neck was cut using an oscillating saw with the humeral head bone brought back table in case there was a need for future bone grafting. The proximal humeral protection plate was used to provisionally confirm suture cup and glenosphere size. Attention was then turned to the glenoid and retractors were placed and a circumferential release performed using the long head of the biceps remnant to remove soft tissue about the glenoid rim. Care was taken inferiorly to work on bone only between 5 and 7:00 o'clock and bluntly elevate tissues inferiorly. The VIP guide was placed on the glenoid and used to confirm placement and trajectory of the central guidepin. The guidepin was inserted through the 10 degree wedge and advanced just through the far cortex ensuring adequate central fixation length. Depth gauge was used to confirm length. The glenosphere sizer was used to confirm positioning and glenosphere size. Eccentric reamer was then used to accommodate for superior inclination of the inferior aspect of the glenoid and minimize bon removal given the known large subchondral cyst in the glenoid vault. The 25 mm central drill was then used over the guidewire. The guidewire removed. The bone cyst explored with thin perforation posteriorly at the prepared glenoid surface. The depth of the cyst was about 10 to 15 mm with intact reaming for the post deeply. Curettes were used to thoroughly debride the cyst of soft tissue and abrade the cardona to optimize chance of healing and filling in. Cancellous bone was harvested from the humeral head and impacted into the cyst using bone tamps. The reamer was then placed by hand back through the far cortex and the central screw tap used to compress the bone graft into the cyst. The baseplate was impacted and fully compressed onto the glenoid surface with good central post and backside fit and fixation. The locking guide was then used to drill and place appropriately lengthed inferior, superior, anterior, and posterior screws. The [id number] reamer was used to confirm adequate peripheral reaming. The glenosphere was applied with the log scaler and then impacted to engage the Celestin taper. It was then locked with appropriate countersinking of the setscrew. The glenosphere was inspected and found to have good fit, appropriate positioning, and no soft tissue or bony impingement. Attention was then turned back to the proximal humerus, which was delivered from the wound and maintained in external rotation. Reamers were started appropriately posterior to the bicipital groove taking care to maintain in line approach with the humeral canal. Sequential reaming was done from size 5 up to size 7. Next, the broaches were sequentially used to open the proximal humerus starting with a size 5 and going up to size 8 and sunk to the appropriate depth while maintaining approximately 30 degrees retroversion. There was good metaphyseal fit and rotational control of the proximal humerus with this size. The neutral offset guide was used to ream for the suture cup. The humeral trial cup was connected. Trialing was commenced with +3 mm liner. The shoulder was reduced and taken through range of motion. It demonstrated good stability and appropriate tension on the deltoid and conjoined tension. The trial components were removed from the proximal humerus. The wound was copiously irrigated with normal saline. A 2 mm drill was used to drill 2 drill holes in the bicipital groove for later subscapularis repair. The the proximal humeral stem and suture cup were assembled and brought over the proximal humerus. Suture tapes were placed superiorly inferiorly at the medial and lateral aspect of the suture cup. The lateral tapes were brought out the drill holes. A small amount of vancomycin powder was distributed in the proximal humerus. The humeral component and suture cup were impacted into place. The trial liner was added, and the shoulder was deemed similarly stable. The final liner was then connected, and range of motion, stability, and tension confirmed. The shoulder was copiously irrigated with Betadine and normal saline. Vancomycin powder was distributed deeply about the shoulder and through subcutaneous tissues. The arm was placed in about 30 degrees of external rotation. The mobilized portion of the central upper subscapularis was reduced and repaired using the pairs of StureTape in a speed bridge type configuration. The arm was taken into more external rotation without any displacement of the subscapularis repair. The deltopectoral interval was well approximated. Subcutaneous tissue was irrigated then closed using 2-0 Monocryl in a buried interrupted fashion. Skin was closed using 3-0 Monocryl in a buried subcuticular fashion. Skin glue was applied to the incision. A silver impregnated bandage was placed over the incision. The extremity was placed into a shoulder immobilizer. The patient awoke from anesthesia without complication and was taken to the recovery room in stable condition.
--- NOTE | 2022-01-25 12:25 | DI.RAD_ITS ---
Exam(s) XR SHOULDER LT COMPLETE 2+V EXAM: XR SHOULDER LT COMPLETE 2+V CLINICAL HISTORY: Portable in PACU postop TECHNIQUE: COMPARISON: CR XR SHOULDER LT COMPLETE 2+V from 11/07/2021 FINDINGS: Four views were obtained. There is a reverse shoulder prosthesis in position. The components appear well seated. No other significant bony abnormality seen. IMPRESSION: RADIATION DOSE DELIVERED: Total DLP
--- NOTE | 2022-01-25 14:02 | PDOC.DSDIS_ITS ---
Date of service: 01/25/22 Time of Service: 13:00 Discharge Plan Disposition Patient Disposition: HOME Condition: Good Discharge Details Attending Provider: Aleksander Chaudhry Primary Care Provider: Maya Rubin Home Meds and New Rx's Prescriptions: New naproxen 250 mg tablet 250 - 500 mg PO BID PRNQty: 40 0RF Rx Instructions: take with a meal aspirin 81 mg tablet,delayed release (DR/EC) 81 mg PO DAILY 7 Days Qty: 7 0RF oxycodone 5 mg tablet 5 - 10 mg PO Q4H MDD 30 mg PRN (Reason: moderate to severe pain) Qty: 18 0RF Continued metronidazole 0.75 % cream 1 applic topical DAILY Discontinued diclofenac sodium [Arthritis Pain (diclofenac)] 1 % gel 2 g topical QID Rx Instructions: apply to single elbow, wrist or hand; for hand includes palm/fingers/back of hand naproxen sodium [Aleve] 220 mg Tablet 220 mg PO QID PRN Discharge Instructions Additional Instructions: Surgery: Left reverse total shoulder arthroplasty (subscap repair) with biceps tenodesis Activity: Do not lift anything heavier than a coffee. You should keep your arm at your side in a neutral position at all times except for gentle range of motion exercises, physical therapy, and essential activities. You should use the sling whenever you are out of the house. You may have to adjust the abduction pillow or remove it for comfort. At home it is best to remove the sling and rest the arm on a pillow at your side or support the operative side with your other hand. A physical therapy prescription will be sent electronically to start in 2-3 weeks. Reverse TSA Protocol: Postoperative Weeks 0-6 ?Immobilization: Sling may be removed for therapeutic exercises, resting in bed or chair, and bathing ?Motion exercises: Pendulum exercises, elbow range- of-motion exercises, wrist xqwnq-fq-sfrmky exercises, and dye range operator cloth strengthening ?Restrictions: No active internal rotation or backwards extension Postoperative Weeks 6-12 ?Immobilization: Sling discontinued ?Motion exercises: Shoulder passive range of motion, advancing to active- assisted range of motion, and finally active range of motion with a goal of forward flexion to 90? and external rotation of 20? ?Strengthening exercises: Light, resisted forward flexion, external rotation, and abduction limited to isometric exercises and therapy bands with concentric motions only. Continue dye range operator cloth strengthening ?Restrictions: No resisted internal rotation or backwards extension. No scapular retraction exercises with therapy bands Postoperative Months 3-12 ?Motion exercises: Increase vsauo-ah-shlhvt exercises to achieve full motion, with passive stretching at end ranges ?Strengthening: Begin resisted, internal rotation and backwards extension initially with isometric exercises advancing to light therapy bands and then weights. Advance other shoulder strengthening exercises to include the rotator cuff, deltoid, and scapular stabilizers. Advance to functional strengthening, including plyometric exercises and core strengthening. Prescriptions: Aspirin 81 mg take 1 daily to prevent a blood clot for 2 weeks Naproxen 250 mg take 1-2 every 12 hours with a meal as needed for moderate pain Oxycodone 5 mg take 1-2 every 4-6 hours as needed for severe pain You may use xikj-erh-rqhhaph Tylenol (acetaminophen) as needed for mild pain. These pain medications may be taken all at once or in different combinations as needed. Also, recommend Colace (docusate) as a stool softener as surgery and pain medicine cause constipation. You may try uiqe-hpv-mzzqzoh diphenhydramine (Benadryl) 25-50 mg nightly as a sleep aid Dressings: Leave dressing in place until follow-up. Keep clean and dry at all times. No showers please. Follow-up: 10-[address] Chaudhry You may take off the leg compression stockings this evening at home. You may also leave them on a few days longer if you have a history of leg swelling or edema. Please call the office during business hours with any questions or concerns. Let us know right away if you develop any redness, drainage, fevers, chest pain, or trouble breathing. Do not drink alcohol or drive for at least 24 hours after anesthesia. Stand Alone Forms: Anesthesia Discharge Inst., [place].Nerve Block Instructions, Deon Nicolas (DSU) DS: Diagnosis Discharge Diagnosis (1) Left rotator cuff tear: Status: Acute (2) Arthritis of left glenohumeral joint: Status: Acute (3) Tendinitis of long head of biceps brachii of left shoulder: Status: Acute
--- NOTE | 2022-01-25 14:39 | W.ANESPOSTOP ---
Postoperative Evaluation Date, Time and Location Date Performed: 01/25/22 Time Performed: 14:39 Patient Location: Day Surgery Unit Vital Signs Most Recent Imported Vital Signs: Most Recent Vital Signs Temp Pulse Resp BP Pulse Ox 36.5 C 65 16 122/71 95 01/25/22 13:30 01/25/22 13:30 01/25/22 13:30 01/25/22 13:30 01/25/22 13:30 Pain Score Most Recent Pain Score: Most Recent Pain Score Pain Level 0 01/25/22 13:30 Assessment Mental Status: Awake (Alert & Oriented to Patient Baseline) Airway and Respiratory Function: Patent airway with normal (patient baseline) respiratory exam Cardiovascular Function: Hemodynamically Stable Hydration Status: Adequately Hydrated Nausea & Vomiting: No Nausea or Vomiting Pain: Pt. Denies Any Pain Peripheral Nerve Block: Patient did not receive a nerve block
== END 2022-01-25 14:45 | disposition home or self-care (01) ==
PROVIDERS: PCP Family Medicine; Visit Provider Student in an Organized Health Care Education/Training Program
PROC: (CPT 23472; principal; 2022-01-25 07:30)
DX: M19.012 Primary osteoarthritis, left shoulder (principal); M75.22 Bicipital tendinitis, left shoulder; M75.102 Unspecified rotator cuff tear or rupture of left shoulder, not specified as traumatic
CPT/HCPCS: 23472; 76942; 73030; J0690; J1100; J2250; J2370; J2405; J2704

== ENCOUNTER 2022-02-05 10:59 | Outpatient (CLI) | payer BC, OTHER, SELFPAY ==
--- NOTE | 2022-02-05 10:45 | RT.EKG_ITS ---
APPROVED REPORT Exam: Resting ECG Reason for Exam: 1 yr f/u Patient Location: O HR:72 bpm ECG Measurements Heart Rate 72 AXIS SC 152 P 42 QRSd 99 QRS -3 QT 398 T 29 QTc 436 Conclusion Sinus rhythm...normal P axis, V-rate 50- 99 Paired ventricular premature complexes...sequence of 2 V complexes Left ventricular hypertrophy...multiple voltage criteria
== END 2022-02-05 11:00 | disposition home or self-care (01) ==
LOC: DI.CARD 11:01
PROVIDERS: PCP Family Medicine; Visit Provider Internal Medicine Cardiovascular Disease
DX: I77.810 Thoracic aortic ectasia (principal); Q23.1 Congenital insufficiency of aortic valve; R94.31 Abnormal electrocardiogram [ECG] [EKG]
CPT/HCPCS: 93010

== ENCOUNTER 2022-02-06 08:49 | Outpatient (CLI) | payer BC, OTHER, SELFPAY ==
--- NOTE | 2022-02-06 08:45 | DI.RAD_ITS ---
Exam(s) XR SHOULDER LT COMPLETE 2+V EXAM: XR SHOULDER LT COMPLETE 2+V CLINICAL HISTORY: left RTC repair f/u. TECHNIQUE: 2D digital imaging was performed. Two images were obtained. AP and Y views were obtained . COMPARISON: CR XR SHOULDER LT COMPLETE 2+V from 01/25/2022 FINDINGS: BONES: There are stable post operative changes present. No fracture or dislocation. JOINTS: The orthopedic hardware is in good position. No evidence of hardware loosening. There are d egenerative changes of the acromioclavicular joint. SOFT TISSUE: Postsurgical changes are seen in the soft tissues. IMPRESSION: Stable postoperative changes. DATA REPOSITORY: RADIATION DOSE DELIVERED:
== END 2022-02-06 08:50 | disposition home or self-care (01) ==
LOC: DIORS 08:49
PROVIDERS: PCP Family Medicine; Referring Provider Family Medicine; Visit Provider Student in an Organized Health Care Education/Training Program
DX: M19.012 Primary osteoarthritis, left shoulder (principal); M75.102 Unspecified rotator cuff tear or rupture of left shoulder, not specified as traumatic
CPT/HCPCS: 73030

== ENCOUNTER 2022-03-12 02:49 | Outpatient (CLI) | payer BC, OTHER, SELFPAY ==
[2022-03-12 19:13] LABS: PSA, Diagnostic 6.5 ng/mL (<=4.5)
== END 2022-03-12 02:50 | disposition home or self-care (01) ==
PROVIDERS: PCP Family Medicine; Visit Provider Nurse Practitioner Gerontology
DX: C61 Malignant neoplasm of prostate (principal); R97.20 Elevated prostate specific antigen [PSA]
CPT/HCPCS: 36415; 84153

== ENCOUNTER 2022-03-27 08:18 | Outpatient (CLI) | payer BC, OTHER, SELFPAY ==
--- NOTE | 2022-03-27 08:00 | DI.RAD_ITS ---
Exam(s) XR SHOULDER LT COMPLETE 2+V EXAM: XR SHOULDER LT COMPLETE 2+V CLINICAL HISTORY: left shoulder f/u. TECHNIQUE: 2D digital imaging was performed. Two images were obtained. AP and Y views were obtained . COMPARISON: CR XR SHOULDER LT COMPLETE 2+V from 02/06/2022 FINDINGS: BONES: There are stable post operative changes present. No fracture or dislocation. JOINTS: The orthopedic hardware is in good position. No evidence of hardware loosening. SOFT TISSUE: Normal. IMPRESSION: Stable postoperative changes. DATA REPOSITORY: RADIATION DOSE DELIVERED:
== END 2022-03-27 08:19 | disposition home or self-care (01) ==
LOC: DIORS 08:18
PROVIDERS: PCP Family Medicine; Referring Provider Family Medicine; Visit Provider Student in an Organized Health Care Education/Training Program
DX: M75.102 Unspecified rotator cuff tear or rupture of left shoulder, not specified as traumatic (principal); Z96.612 Presence of left artificial shoulder joint; Z98.890 Other specified postprocedural states
CPT/HCPCS: 73030

== ENCOUNTER 2022-05-29 09:22 | Outpatient (CLI) | payer BC, OTHER, SELFPAY ==
--- NOTE | 2022-05-29 08:15 | DI.RAD_ITS ---
Exam(s) XR SHOULDER LT COMPLETE 2+V EXAM: XR SHOULDER LT COMPLETE 2+V INDICATION: left rotator cuff tear f/u. COMPARISON: No exams were available for comparison TECHNIQUE: 2D digital imaging was performed. Two views. FINDINGS: There has been no change in the alignment of the reverse shoulder prosthesis. No suspicious bony donato encies. DATA REPOSITORY: RADIATION DOSE DELIVERED:
== END 2022-05-29 09:23 | disposition home or self-care (01) ==
LOC: DIORS 09:23
PROVIDERS: PCP Family Medicine; Referring Provider Family Medicine; Visit Provider Student in an Organized Health Care Education/Training Program
DX: M75.102 Unspecified rotator cuff tear or rupture of left shoulder, not specified as traumatic (principal); Z98.890 Other specified postprocedural states
CPT/HCPCS: 73030

== ENCOUNTER 2022-09-12 04:05 | Outpatient (CLI) | payer BC, OTHER, SELFPAY ==
[2022-09-12 19:53] LABS: PSA, Diagnostic 8.6 ng/mL (<=4.5)
== END 2022-09-12 04:06 | disposition home or self-care (01) ==
LOC: LBO 04:05
PROVIDERS: PCP Family Medicine; Visit Provider Nurse Practitioner Gerontology
DX: C61 Malignant neoplasm of prostate (principal)
CPT/HCPCS: 36415; 84153

== ENCOUNTER → 2023-01-14 02:45 | Outpatient (CLI) | payer BC, OTHER, SELFPAY ==
--- NOTE | 2023-01-14 08:00 | DI.US_ITS ---
APPROVED REPORT EXAM: Comprehensive 2D, Doppler, and color-flow Echocardiogram Patient Location: Out-Patient [place] Operator: Sanjay Sage RDCS (AE) Indications: aortic stenosis and regurgitation, bicuspid aortic valve Other Information Study Quality: Good Conclusion Left ventricular wall thickness and chamber size. Ejection fraction is 55%. Wall motion is normal Normal right ventricular size and systolic function Both atria are normal in size Aortic valve is bicuspid and sclerotic. There is mild aortic regurgitation. There is mild to modera te aortic stenosis. Peak gradient is 37, mean 20 mmHg. Calculated aortic valve area is 1.2 cm?? Dilated ascending aorta 3.82 cm Wall motion Left Ventricle Left ventricle is mildly dilated. The left ventricular systolic function is normal. The left ventricu lar ejection fraction is within the normal range. There is normal left ventricular wall thickness. Th ere is normal LV segmental wall motion. There is no ventricular septal defect visualized. LVEF is 55% . Right Ventricle The right ventricle is normal size. The right ventricular systolic function is normal. The RVSP is 22 .6 mmHg. Atria The left atrium size is normal. The right atrium size is normal. The interatrial septum is intact wit h no evidence for an atrial septal defect. Aortic Valve The Aortic valve is sclerotic. Aortic valve is bicuspid. Mild to moderate aortic stenosis. Peak aorti c valve gradient is 37.32 mmHg. Highest mean aortic valve gradient is 20.31 mmHg. Calculated BREONNA by t he continuity equation is 1.2 cm2. Mild aortic regurgitation. Mitral Valve The mitral valve is normal in structure. No evidence of mitral valve stenosis. There is no mitral sherman ve regurgitation noted. Tricuspid Valve The tricuspid valve is normal in structure. There is no tricuspid valve stenosis. Trace to mild tricu spid regurgitation. Pulmonic Valve The pulmonary valve is normal in structure. There is no pulmonic valvular stenosis. There is no pulmo isadora valvular regurgitation. Great Vessels Aortic root is mildly dilated. The ascending aorta is mildly dilated. Aortic arch is normal in calib er. IVC is normal in size and collapses >50% with inspiration. Pericardium There is no pericardial effusion. 2D Dimensions IVSD d PLAX 0.83 cm M: 0.6-1.2 Ao Root d 3.82 cm M: 3.1 - 3.7 LVPW d PLAX 0.77 cm M: 0.6 - 1.2 Ao Asc Diam d 3.82 cm M: 2.6 - 3.4 LVID d PLAX 6.50 cm M: 4.2 - 5.8 LVDs 4.70 cm M: 2.5 - 4.0 LV EF Teichholz 52.8 % FS 27.82 % LV EDV (Teich) 216.4 mL LV ESV (Teich) 102.1 mL Stroke Vol Index (Teich) 55.19 Auto EF LV EDV A4C 191.6 mL LV EDV A2C 184.0 mL LV EDV BP 191.1 mL LV ESV A4C 90.4 mL LV ESV A2C 81.3 mL LV ESV BP 87.3 mL LVEF(%) A4C 52.8 % LVEF(%) A2C 55.8 % LVEF(%) BP 54.3 % LV SV A4C 101.2 ml LV SV A2C 102.7 ml LV SV BP 103.9 ml LV CO A4C 6.2 L/min LV CO A2C 6.2 L/min LV CO BP 6.2 L/min HR A4C 61.65 BPM HR A2C 60.49 BPM LV EDV Index (BP) LA Volume LA Length A4C 5.4 cm LA Length A2C LA Area A4C s 15.18 cm2 LA Area A2C s LA Vol A4C A-L 36.36 mL LA Vol A2C A-L LA Vol Biplane A-L LA Vol A4C MOD 33.8 mL LA Vol A2C MOD LA Vol BP MOD RA Volume RA Area A4C 9.3 cm2 RA ESV A4C (A-L) 16.2mL RA Vol/BSA A4C A-L RA Length A4C 4.5 cm RA ESV A4C (MOD) 15.9mL LV Diastology MV E' medial 0.071 (>0.07 m/s) MV E Vmax 0.57 (0.4-1.3 m/s) MV E/E' MED 8.00 (<14) MV A Vmax 0.90 (0.4-1.3 m/s) MV E' lateral 0.094 (>0.1 m/s) E/A Ratio 0.6 MV E/E' LAT 6.06 (<14) MV E' Average 0.082 m/s MV E/E'(average) 6.90 Aortic Valve AoV Vmax 2.68 m/s LVOT Vmax 1.33 m/s AoV Peak Grad 47.9 mmHg LVOT Peak Grad 7.0 mmHg AoV Area (Vmax) 1.25 cm2 LVOT VTI 0.329 m AoV VTI 0.667 m LVOT Mean Grad 3.7 mmHg AoV Mean Chuy. 2.11 m/s LVOT SV 83.18 mL AoV Mean Grad 20.3 mmHg LVOT Diam s 1.75 cm AoV Area (VTI) 1.25 cm2 AV Regurg Peak Gr. 58.45 mmHg Velocity Ratio 0.50 AR Decel Valencia 1.9m/sec2 AR DT 2031 msec AR PHT 589 msec AR Vmax 3.82 m/s Mitral Valve MV DT 391 (160-240 msec) Pulmonary Valve PV Vmax 0.79 (0.5-1.5 m/s) RVOT Vmax 0.64 m/s PV Peak Grad 2.5 mmHg RVOT Peak Gr. 1.7 mmHg PV Mean Chuy 0.58 m/s RVOT VTI 0.119 m PV Mean Grad 1.5 mmHg RVOT Mean Gr. 0.8 mmHg Tricuspid Valve RA Pressure 3.00 mmHg TR Vmax 2.21 m/s TR Peak Grad 19.5 mmHg RVSP (TR) 22.6 mmHg
== END ==
PROVIDERS: PCP Family Medicine; Visit Provider Internal Medicine Cardiovascular Disease
DX: Q23.1 Congenital insufficiency of aortic valve (principal)
CPT/HCPCS: 93306

== ENCOUNTER 2023-02-05 14:02 | Outpatient (CLI) | payer BC, OTHER, SELFPAY ==
--- NOTE | 2023-02-05 08:00 | DI.RAD_ITS ---
Exam(s) XR SHOULDER LT COMPLETE 2+V EXAM: XR SHOULDER LT COMPLETE 2+V CLINICAL HISTORY: F/U LEFT RTSA. TECHNIQUE: 2D digital imaging was performed. Three views. COMPARISON: CR XR SHOULDER LT COMPLETE 2+V from 05/29/2022 FINDINGS: BONES: No acute fracture is present. No bony destructive lesion is seen. JOINTS: No dislocation present. There has been no change in the alignment of the reverse shoulder pr osthesis. SOFT TISSUE: Normal. IMPRESSION: Stable appearance of reverse shoulder prosthesis. DATA REPOSITORY: RADIATION DOSE DELIVERED:
--- NOTE | 2023-02-05 08:30 | DI.RAD_ITS ---
Exam(s) XR CHEST 2V PA LATERAL EXAM: XR CHEST 2V PA LATERAL CLINICAL HISTORY: BONE LESION SEEN ON SHOULDER XR TECHNIQUE: 2D digital imaging was performed. COMPARISON: CR XR SHOULDER LT COMPLETE 2+V from 02/05/2023 FINDINGS: HEART: Normal size. Aorta: Not dilated. PULMONARY VASCULATURE: Normal. LUNGS: Clear. PLEURAL SPACE: No pleural effusion or pneumothorax. BONE:Left shoulder prosthesis. Soft tissues: Unremarkable. IMPRESSION: No acute abnormality. DATA REPOSITORY: RADIATION DOSE DELIVERED:
== END 2023-02-05 14:03 | disposition home or self-care (01) ==
LOC: DIORS 14:03
PROVIDERS: PCP Family Medicine; Visit Provider Student in an Organized Health Care Education/Training Program
DX: Z96.612 Presence of left artificial shoulder joint (principal); M89.9 Disorder of bone, unspecified
CPT/HCPCS: 71046; 73030

== ENCOUNTER 2023-02-14 14:26 | Outpatient (REF) | payer BC, OTHER, SELFPAY ==
--- NOTE | 2023-02-14 14:20 | PROST_PTH ---
PATIENT: Charles Arreaga LOC: [facility] U#:[id number] AGE/SX: 62/M ROOM: RE02/14/[address]: Tee Toney MD : [id number] BED: DIS: 02/14/2023 SPEC #: [id number] RECD: 02/14/23 17:21 STATUS: LUIS E RE #: [id number] CLAUDIO: 02/14/23 14:[address]: Tee Toney DEPT: Surgical Specimen RECD BY: Stephanie Jacob ENTERED: 02/14/23 17:22 SP TYPE: PROST OTHR DR: Maya Rubin Tissues: 1 - PROSTATE NEEDLE BIOPSY 2 - PROSTATE NEEDLE BIOPSY 3 - PROSTATE NEEDLE BIOPSY 4 - PROSTATE NEEDLE BIOPSY 5 - PROSTATE NEEDLE BIOPSY 6 - PROSTATE NEEDLE BIOPSY 7 - PROSTATE NEEDLE BIOPSY 8 - PROSTATE NEEDLE BIOPSY 9 - PROSTATE NEEDLE BIOPSY 10 - PROSTATE NEEDLE BIOPSY 11 - PROSTATE NEEDLE BIOPSY 12 - PROSTATE NEEDLE BIOPSY Procedures: GROSS AND MICRO LEVEL 4 Comments: [id number]
== END 2023-02-14 14:27 | disposition home or self-care (01) ==
LOC: LBN 14:26
PROVIDERS: PCP Family Medicine; Visit Provider Urology
DX: C61 Malignant neoplasm of prostate (principal)
CPT/HCPCS: 88305

== ENCOUNTER → 2023-03-05 01:41 | Outpatient (CLI) | payer BC, OTHER, SELFPAY ==
--- NOTE | 2023-03-05 07:30 | DI.NM_ITS ---
Exam(s) NM BONE SCAN WHOLE BODY GRP EXAM: NM BONE SCAN WHOLE BODY GRP CLINICAL HISTORY: Staging for dx of prostate cancer,C61. TECHNIQUE: Injected Dose: 25 mCi Tc-99m MDP Delayed Images: 3 hours COMPARISON: CR RIGHT KNEE 3 VIEWS from 09/04/2010 CR RIGHT KNEE 3 VIEWS from 09/29/2015 CR XR CHEST 2V PA LATERAL from 02/05/2023 FINDINGS: There is a photopenic zones in the left shoulder consistent with known prosthesis. Photopenic zone in the right knee which is probably related to prosthesis. There is some activity in both sides the tibial plateau at this level which may indicate an element of loosening of the prosth esis. Some uptake in the medial aspect of the opposite-left knee is most probably degenerative as is some s cattered uptake in the right ankle and distal foot at the great toe metatarsophalangeal joint level. There is no abnormal focal uptake in the rib cages and spinal column to suggest osseous metastatic di sease. No abnormal uptake in the pelvis and hips and other long bones of the upper lower extremities . Uptake in both wrists at the 1st carpometacarpal joints noted which is most probably degenerative. No significant abnormal uptake in the skull. IMPRESSION: 1. Findings as above but with no evidence to suggest osseous metastatic disease. DATA REPOSITORY:
== END ==
PROVIDERS: PCP Family Medicine; Visit Provider Nurse Practitioner Gerontology
DX: C61 Malignant neoplasm of prostate (principal)
CPT/HCPCS: 78306

== ENCOUNTER 2023-03-05 15:48 | Outpatient (REF) | payer BC, OTHER, SELFPAY ==
[2023-03-05 11:13] LABS: ALT 31 U/L (16-63); AST 21 U/L (15-37); Albumin 3.7 g/dL (3.4-5.0); Alkaline Phosphatase 100 U/L (46-116); Anion Gap 9.9 mmol/L (3-11); BUN 7 mg/dL (7-18); Bilirubin, Total 0.7 mg/dL (0.2-1.0); CO2 26.1 mmol/L (21.0-32.0); CREATININE 0.9 mg/dL (0.70-1.30); Calcium 9.4 mg/dL (8.5-10.1); Calculated LDL 85 mg/dL (<100); Chloride 102 mmol/L (98-107); Cholesterol 171 mg/dL (<200); Estimated GFR 95.97 (mL/min/1.73m2); Glucose 117 mg/dL (74-106); HDL Cholesterol 77 mg/dL (40-60); Potassium 4.2 mmol/L (3.5-5.1); Sodium 138 mmol/L (136-145); Total Protein 8.1 g/dL (6.4-8.2); Triglyceride 48 mg/dL (<150)
== END 2023-03-05 15:49 | disposition home or self-care (01) ==
LOC: LBN 15:48
PROVIDERS: PCP Family Medicine; Visit Provider Internal Medicine
DX: Z00.00 Encounter for general adult medical examination without abnormal findings (principal); K90.0 Celiac disease; Z13.220 Encounter for screening for lipoid disorders; Z11.59 Encounter for screening for other viral diseases
CPT/HCPCS: 80053; 80061; 86706

== ENCOUNTER 2023-07-31 05:23 | Outpatient (CLI) | payer BC, OTHER, SELFPAY ==
[2023-08-01 19:13] LABS: PSA, Ultrasensitive <0.01 ng/mL (<= 4.5)
== END 2023-07-31 05:24 | disposition home or self-care (01) ==
LOC: LBO 05:23
PROVIDERS: PCP Family Medicine; Visit Provider Surgery
DX: C61 Malignant neoplasm of prostate (principal)
CPT/HCPCS: 36415; 84153

== ENCOUNTER 2023-11-04 12:13 | Outpatient (CLI) | payer BC, OTHER, SELFPAY ==
[2023-11-06 11:09] LABS: PSA, Ultrasensitive <0.01 ng/mL (<= 4.5)
== END 2023-11-04 12:14 | disposition home or self-care (01) ==
PROVIDERS: PCP Family Medicine; Visit Provider Surgery
DX: C61 Malignant neoplasm of prostate (principal)
CPT/HCPCS: 36415; 84153

== ENCOUNTER 2023-11-20 01:52 | Outpatient (CLI) | payer BC, OTHER, SELFPAY ==
--- NOTE | 2023-11-20 08:45 | DI.US_ITS ---
APPROVED REPORT EXAM: Comprehensive 2D, Doppler, and color-flow Echocardiogram Patient Location: [facility]-Patient [facility] Administrator: Sanjay Sage RDCS (AE) Indications: Bicuspid AOV, aortic stenosis Conclusion Normal left ventricular wall thickness and chamber size. Ejection fraction is 58%. Wall motion is n ormal Normal right ventricular size and function Left atrium is mildly dilated. Right atrial size is normal Aortic valve is sclerotic and appears functionally bicuspid. There is mild aortic stenosis. Mean gr adient is 19 mmHg, calculated aortic valve area 1.3 cm??. There is mild aortic regurgitation Ascending aorta measures 3.8 cm Wall motion Left Ventricle The left ventricle is normal size. The left ventricular systolic function is normal. The left ventric ular ejection fraction is within the normal range. There is normal left ventricular wall thickness. T here is normal LV segmental wall motion. The left ventricular diastolic function is normal. There is no ventricular septal defect visualized. LVEF is 57%. Right Ventricle The right ventricle is normal size. The right ventricular systolic function is normal. Atria Left atrium is mildly dilated. The right atrium size is normal. The interatrial septum is intact with no evidence for an atrial septal defect. Aortic Valve The Aortic valve is sclerotic. Aortic valve is bicuspid. Mean gradient is 19 mmHg Calculated aortic v alve area is 1.3 cm?? Mild aortic regurgitation. Mitral Valve The mitral valve is normal in structure. No evidence of mitral valve stenosis. Trace mitral regurgita tion. Tricuspid Valve The tricuspid valve is normal in structure. There is no tricuspid valve stenosis. There is no tricusp id valve regurgitation noted. Pulmonic Valve The pulmonary valve is normal in structure. There is no pulmonic valvular stenosis. There is no pulmo isadora valvular regurgitation. Great Vessels The aortic root is normal in size. The ascending aorta is mildly dilated. Aortic arch is normal in ca liber. IVC is normal in size and collapses >50% with inspiration. Pericardium There is no pericardial effusion. 2D Dimensions IVSD d PLAX 0.84 cm M: 0.6-1.2 Ao Root d 3.22 cm M: 3.1 - 3.7 LVPW d PLAX 0.80 cm M: 0.6 - 1.2 Ao Asc Diam d 3.81 cm M: 2.6 - 3.4 LVID d PLAX 5.69 cm M: 4.2 - 5.8 LVDs 3.99 cm M: 2.5 - 4.0 LV EF Teichholz 56.3 % FS 29.88 % LV EDV (Teich) 159.2 mL LV ESV (Teich) 69.5 mL Stroke Vol Index (Teich) 43.34 M-Mode TAPSE 2.64 cm (M/F) >1.7 Auto EF LV EDV A4C 186.7 mL LV EDV A2C 171.3 mL LV EDV BP 182.2 mL LV ESV A4C 81.0 mL LV ESV A2C 73.3 mL LV ESV BP 76.0 mL LVEF(%) A4C 56.6 % LVEF(%) A2C 57.2 % LVEF(%) BP 58.3 % LV SV A4C 105.7 ml LV SV A2C 98.0 ml LV SV BP 106.2 ml LV CO A4C 7.2 L/min LV CO A2C 6.7 L/min LV CO BP 6.9 L/min HR A4C 67.80 BPM HR A2C 68.57 BPM LV EDV Index (BP) LA Volume LA Length A4C 5.0 cm LA Length A2C 5.2 cm LA Area A4C s 18.10 cm2 LA Area A2C s 17.31 cm2 LA Vol A4C A-L 55.44 mL LA Vol A2C A-L 48.80 mL LA Vol Biplane A-L 53.0 mL LA Vol/BSA A4C A-L LA Vol/BSA A2C A-L LA Vol/BSA BP A-L 25.6 mL/m2 LA Vol A4C MOD 50.3 mL LA Vol A2C MOD 47.8 mL LA Vol BP MOD 49.8 mL RA Volume RA Area A4C 9.8 cm2 RA ESV A4C (A-L) 19.7mL RA Vol/BSA A4C A-L RA Length A4C 4.2 cm RA ESV A4C (MOD) 18.7mL LV Diastology MV E' medial 0.051 (>0.07 m/s) MV E Vmax 0.53 (0.4-1.3 m/s) MV E/E' MED 10.47 (<14) MV A Vmax 0.80 (0.4-1.3 m/s) MV E' lateral 0.074 (>0.1 m/s) E/A Ratio 0.7 MV E/E' LAT 7.16 (<14) MV E' Average 0.062 m/s MV E/E'(average) 8.51 Aortic Valve AoV Vmax 2.92 m/s LVOT Vmax 1.35 m/s AoV Peak Grad 46.5 mmHg LVOT Peak Grad 7.3 mmHg AoV Area (Vmax) 1.22 cm2 LVOT VTI 0.339 m AoV VTI 0.667 m LVOT Mean Grad 5.0 mmHg AoV Mean Chuy. 2.09 m/s LVOT SV 89.06 mL AoV Mean Grad 19.4 mmHg LVOT Diam s 1.80 cm AoV Area (VTI) 1.34 cm2 AV Regurg Peak Gr. 34.20 mmHg Velocity Ratio 0.46 AR Decel Callahan 2.8m/sec2 AR DT 1381 msec AR PHT 400 msec AR Vmax 3.83 m/s Mitral Valve MV DT 298 (160-240 msec) Pulmonary Valve PV Vmax 0.87 (0.5-1.5 m/s) RVOT Vmax 0.56 m/s PV Peak Grad 3.0 mmHg RVOT Peak Gr. 1.2 mmHg PV Mean Chuy 0.61 m/s RVOT VTI 0.131 m PV Mean Grad 1.7 mmHg RVOT Mean Gr. 0.6 mmHg Tricuspid Valve RA Pressure 3.00 mmHg TR Vmax 2.14 m/s TR Peak Grad 18.2 mmHg RVSP (TR) 21.3 mmHg
== END 2023-11-20 02:12 ==
LOC: DI 01:52
PROVIDERS: PCP Family Medicine; Visit Provider Internal Medicine Cardiovascular Disease
DX: Q23.1 Congenital insufficiency of aortic valve (principal)
CPT/HCPCS: 93306

== ENCOUNTER 2024-02-03 08:13 | Outpatient (CLI) | payer BC, OTHER, SELFPAY ==
--- NOTE | 2024-02-03 08:00 | RT.EKG_ITS ---
APPROVED REPORT Exam: Resting ECG Reason for Exam: ventricular ectopy Patient Location: O HR:67 bpm ECG Measurements Heart Rate 67 AXIS OH 171 P 53 QRSd 103 QRS -4 QT 382 T 12 QTc 404 Conclusion Sinus rhythm...normal P axis, V-rate 50- 99
== END 2024-02-03 08:14 | disposition home or self-care (01) ==
LOC: DI.CARD 08:14
PROVIDERS: PCP Family Medicine; Visit Provider Registered Nurse
DX: Q23.1 Congenital insufficiency of aortic valve (principal); I49.3 Ventricular premature depolarization
CPT/HCPCS: 93010

== ENCOUNTER 2024-05-26 12:43 | Outpatient (REF) | payer OTHER, MEDICARE, SELFPAY ==
[2024-05-28 16:15] LABS: PSA, Ultrasensitive <0.01 ng/mL (<= 4.5)
== END 2024-05-26 12:44 | disposition home or self-care (01) ==
LOC: NCHCN 12:43
PROVIDERS: PCP Family Medicine; Visit Provider Family Medicine
DX: C61 Malignant neoplasm of prostate (principal)
CPT/HCPCS: 84153

== ENCOUNTER 2024-08-19 12:51 | Outpatient (REF) | payer MEDICARE, BC, SELFPAY ==
[2024-08-19 14:43] LABS: Abs Immature Grans 0.01 10^3/uL (0.0-0.06); Absolute Basophil Count 0.05 10^3/uL (0.0-0.2); Absolute Eosinophil Count 0.06 10^3/uL (0.0-0.7); Absolute Lymphocyte Count 1.46 10^3/uL (1.2-3.4); Absolute Monocyte Count 0.64 10^3/uL (0.1-0.8); Absolute Neutrophil Count 4.01 10^3/uL (1.2-6.7); Basophils % 0.8 %; HCT 41.2 % (40.0-50.0); HGB 14.4 g/dL (13.5-17.5); Immature Grans % 0.2 %; Lymphocytes % 23.4 %; MCH 31.2 pg (27.0-33.0); MCV 89 fL (80-95); MPV 9.2 fL (8.0-11.0); Monocytes % 10.3 %; Neutrophils % 64.3 %; Platelet Count 284 10^3/uL (130-400); RBC 4.62 10^6/uL (4.36-5.78); RDW 11.8 % (11.8-14.1); RDW-SD 38.2 fL; WBC 6.23 10^3/uL (4.4-10.8)
[2024-08-19 14:55] LABS: ALT 33 U/L (16-63); AST 25 U/L (15-37); Alkaline Phosphatase 112 U/L (46-116); Anion Gap 10.9 mmol/L (3-11); BUN 8 mg/dL (7-18); Bilirubin, Total 0.6 mg/dL (0.2-1.0); CO2 26.1 mmol/L (21.0-32.0); CREATININE 0.7 mg/dL (0.70-1.30); Calcium 9.2 mg/dL (8.5-10.1); Chloride 100 mmol/L (98-107); Estimated GFR 102.25 (mL/min/1.73m2); Glucose 105 mg/dL (74-106); Potassium 4.4 mmol/L (3.5-5.1); Sodium 137 mmol/L (136-145); Total Protein 7.6 g/dL (6.4-8.2)
== END 2024-08-19 12:52 | disposition home or self-care (01) ==
LOC: NCHCN 12:51
PROVIDERS: PCP Family Medicine; Visit Provider Family Medicine
DX: R10.30 Lower abdominal pain, unspecified (principal)
CPT/HCPCS: 80053; 85025

== ENCOUNTER 2024-08-25 02:58 | Outpatient (CLI) | payer MEDICARE, BC, SELFPAY ==
--- NOTE | 2024-08-25 | DI.CT_ITS ---
Exam(s) CT ABDOMEN PELVIS W EXAM: CT ABDOMEN PELVIS W CLINICAL HISTORY: LOWER ABDOMINAL PAIN, R10.30,LLQ PAIN, ? DIVERTICULITIS. TECHNIQUE: Imaging Protocol: Axial computed tomography images with coronal and sagittal reformatted images were created and reviewed CONTRAST MATERIAL: Intravenous: Omnipaque 350 Contrast volume:75 ml Oral: yes COMPARISON: CT CT BRAIN CTA from 02/17/2019 FINDINGS: ABDOMEN and PELVIS: Lung Bases: No acute findings. Liver: Mild hepatic steatosis. No suspicious mass. Gallbladder and biliary tract: No radiodense calculus. No wall thickening or pericholecystic fluid. No biliary dilation. Pancreas: Normal density. No abnormal calcifications or inflammatory process. No evidence of mass. Spleen: Normal. Kidneys: Normal size, contour and axis. No radiodense stones. No obstructive uropathy. No suspicious masses seen. Adrenal glands: No masses seen. Vasculature: Abdominal aorta non-dilated. Soft tissues: Area of soft tissue thickening in the midline of the anterior abdominal wall, above the level of the umbilicus, presumably related to prior surgery. Bladder: No gross wall thickening. No calculi.No focal mass. 3.7 centimeter right-sided bladder diverticulum. Bowel: No obstruction. No bowel wall thickening. Appendix normal.Diverticulosis of the descending and sigmoid colon. No evidence of diverticulitis. The of stool. Peritoneal cavity: No ascites. No focal collection. No mesenteric inflammatory response. No free air. Bones: Unremarkable for age. Reproductive organs: Prostatectomy. Lymph nodes: No pathologically enlarged lymph nodes. IMPRESSION:: Diverticulosis without evidence of diverticulitis. Right-sided bladder diverticulum. RADIATION DOSE DELIVERED: 556.1mGy.cm Total DLP DATA REPOSITORY: All CT scans at this facility are submitted to the National Radiology Data Registry (NRDR) Dose Index Registry (DIR) with the [employer] (A[employer]). RADIATION OPTIMIZATION: All CT scans at this facility use at least one of these dose optimization techniques: automated exposure control; mA and/or kV adjustment per patient size (includes targeted exams where dose is matched to clinical indication); or iterative reconstruction.
[2024-08-25] MEDS: Barium Sulfate 2% W/V-Creamy Vanilla Smoothie 450 ML BTL PO (09:38)
[2024-08-25] MEDS: Barium Sulfate 2% W/V-Berry Smoothie 450 ML BTL PO (09:39)
[2024-08-25] MEDS: Normal Saline - Diluent 50 ML VIAL IJ (11:25)
[2024-08-25] MEDS: Omnipaque 350 MG/ML 500 ML BTL-Imaging package 75 ML IJ (11:26)
== END 2024-08-25 03:18 ==
PROVIDERS: PCP Family Medicine; Visit Provider Family Medicine
DX: K57.30 Diverticulosis of large intestine without perforation or abscess without bleeding (principal)
CPT/HCPCS: 74177

== ENCOUNTER 2024-09-21 08:49 | Outpatient (CLI) | payer MEDICARE, BC, SELFPAY ==
--- NOTE | 2024-09-21 07:57 | DI.RAD_ITS ---
Exam(s) XR KNEE LT 4V AP,LAT,GREY,PAT EXAM: XR KNEE LT 4V AP,LAT,GREY,PAT CLINICAL HISTORY: left knee pain. TECHNIQUE: 2D digital imaging was performed. COMPARISON: CR XR KNEE 4 VIEW RIGHT from 09/06/2021 FINDINGS: Four views No evidence of fracture but there does appear to be a joint effusion. There are moderate degenerative changes in the medial compartment mild Verus deformity. Lateral compartment exhibits normal height. There are mild-degenerative changes the patellofemoral compartment. IMPRESSION: Degenerative changes as above.. Joint effusion. DATA REPOSITORY: RADIATION DOSE DELIVERED:
--- NOTE | 2024-09-21 07:57 | DI.RAD_ITS ---
Exam(s) XR KNEE RT 3V AP,LAT,GREY EXAM: XR KNEE RT 3V AP,LAT,GREY CLINICAL HISTORY: RIGHT KNEE PAIN. TECHNIQUE: 2D digital imaging was performed. COMPARISON: NM NM BONE SCAN WHOLE BODY GRP from 03/05/2023 CR XR KNEE LT 4V AP,LAT,GREY,PAT from 09/21/2024 FINDINGS: 3 views Components of the right knee prosthesis appear intact. However, there is lucency subjacent to the tibial component of the right knee prosthesis concerning for an element of possible loosening. There is no abnormal lucency around the femoral component. IMPRESSION: Findings as above related to the tibial component of the prosthesis STIR which may indicate loosening and which corresponds to findings on the nuclear bone scan of 03/05/2023. DATA REPOSITORY: RADIATION DOSE DELIVERED:
== END 2024-09-21 08:50 | disposition home or self-care (01) ==
LOC: DIORS 08:49
PROVIDERS: PCP Family Medicine; Referring Provider Family Medicine; Visit Provider Student in an Organized Health Care Education/Training Program
DX: M25.562 Pain in left knee (principal); M17.12 Unilateral primary osteoarthritis, left knee; T84.82XA Fibrosis due to internal orthopedic prosthetic devices, implants and grafts, initial encounter; Z96.651 Presence of right artificial knee joint
CPT/HCPCS: 99215; 73562; 73564

== ENCOUNTER 2024-09-28 13:51 | Emergency (ER) | payer MEDICARE, BC, SELFPAY ==
[2024-09-28 13:52] VITALS: BP 142/75; PULSE 83; RESP 16; TEMP 36.6; O2SAT 96
--- NOTE | 2024-09-28 14:30 | DI.RAD_ITS ---
Exam(s) XR FOOT LT COMPLETE XR ANKLE LT COMPLETE EXAM: XR FOOT LT COMPLETE and XR ankle LT complete CLINICAL HISTORY: pain, injury. TECHNIQUE: 2D digital imaging was performed of the left ankle and foot. Eight images were obtained. AP, oblique and lateral views were obtained. COMPARISON: There are no priors for comparison. FINDINGS: BONES: No acute fracture is present. No bony destructive lesion is seen. There is an enthesophyte at the posterior calcaneus. There is a small plantar calcaneal spur. JOINTS: No dislocation present. The joint spaces are well maintained. The ankle is well maintained. SOFT TISSUE: There is soft tissue swelling around the ankle. IMPRESSION: 1. There is no acute fracture or dislocation. 2. There is soft tissue swelling around the ankle. DATA REPOSITORY: RADIATION DOSE DELIVERED:
[2024-09-28 15:06] VITALS: BP 145/75; PULSE 68; RESP 14; O2SAT 96
--- NOTE | 2024-09-28 15:52 | W.ED.GENAD ---
Discharge Plan Disposition Patient Disposition: Home Condition: Stable Discharge Details Clinical Impression: Sprain of ankle Primary Care Provider: Maya Rubin ED Provider: Cydney Rich Home Meds and New Rx's Prescriptions: No Action metronidazole 0.75 % cream 1 applic topical DAILY lorazepam 0.5 mg tablet 0.5 mg PO DAILY PRN (Reason: pre-medication for MRI) Qty: 2 0RF Rx Instructions: Take one tab 30 mins prior to MRI. May repeat right before MRI if needed sildenafil [Viagra] 100 mg tablet 100 mg PO DAILY PRN (Reason: sexual activity) Qty: 10 6RF Rx Instructions: administer 30 minutes to 4 hours before activity; Note dosage change tadalafil [Cialis] 20 mg tablet 20 mg PO DAILY MDD 1 tab (20mg) PRN (Reason: sexual activity) Qty: 10 2RF Rx Instructions: administer at least approximately 30min before sexual activity; do not use more than 1 dose per 24hrs. Do not use viagra at same time. Discharge Instructions Additional Instructions: The x-ray of your ankle and foot today do not show any fracture. There is a small amount of swelling. You can continue to ice and elevate. Take ibuprofen as needed. You may use an Jayson wrap for compression if the swelling persist. If you have any worsening symptoms you may follow-up with primary care or orthopedics. Discharge Data Discharge Physician: Cydney Rich [facility] General Date/Time Provider Initiated Documentation: 09/28/24 14:36. HPI Narrative: 64-year-old male presents for evaluation of left ankle and foot pain and swelling. Patient states on September 24 he was walking into a camper when he started to fall when his sandal got stuck. He jumped backwards and believes that he twisted his ankle at that time. He states he had some discomfort initially however he has been able to ambulate and golf. Yesterday and today he noted some increased swelling in his ankle. Denies any numbness or tingling. Related Data Home Medications ?Medication ?Instructions ?Recorded ?Confirmed metronidazole 0.75 % topical cream 1 applic topical DAILY 08/08/20 09/28/24 lorazepam 0.5 mg tablet 0.5 mg PO DAILY PRN pre-medication 09/26/22 09/28/24 for MRI #2 tabs sildenafil 100 mg tablet (Viagra) 100 mg PO DAILY PRN sexual 03/02/24 09/28/24 Held on 06/01/24. activity #10 tabs Instructions: Home Medication placed on hold at Doctor's office tadalafil 20 mg tablet (Cialis) 20 mg PO DAILY PRN sexual activity 08/31/24 09/28/24 #10 tabs Previous Rx's ?Medication ?Instructions ?Recorded lorazepam 0.5 mg tablet 0.5 mg PO DAILY PRN pre-medication 09/26/22 for MRI #2 tabs sildenafil 100 mg tablet (Viagra) 100 mg PO DAILY PRN sexual 03/02/24 Held on 06/01/24. activity #10 tabs Instructions: Home Medication placed on hold at Doctor's office tadalafil 20 mg tablet (Cialis) 20 mg PO DAILY PRN sexual activity 08/31/24 #10 tabs Allergies Allergy/AdvReac Type Severity Reaction Status Date / Time No Known Allergies Allergy Verified 09/28/24 13:56 General Stated Complaint: Orthopedic GEOVANNY: 4 Review of Systems Narrative: Remainder of review of systems otherwise negative except for as noted in the HPI x 5. Exam Narrative Exam Narrative: General: non-toxic, no respiratory distress, comfortable HEENT: normocephalic, atraumatic, lids and lashes normal, PERRL, EOMI, anicteric sclera, no conjunctival injection, moist oral mucosa Musculoskeletal: Mild diffuse swelling to left ankle without any erythema or warmth, no pain to palpation over medial or lateral malleolus, Achilles intact, no metatarsal tenderness, 2+ dorsal pedal pulse, station tact, otherwise full range of motion of arms and legs, no tenderness to palpation. no clubbing, cyanosis, or edema Neurologic: appropriate for age, strength normal Psych: alert and oriented Skin: no petechiae, no lesions, warm and dry Course Vital Signs Vital signs: Vital Signs Temperature 36.6 C 09/28/24 13:52 Pulse 83 09/28/24 13:52 Respiratory Rate 16 09/28/24 13:52 Blood Pressure 142/75 H 09/28/24 13:52 Pulse Oximetry 96 09/28/24 13:52 Temperature 36.6 C 09/28/24 13:52 Temperature Source Oral 09/28/24 13:52 Pulse 68 09/28/24 15:06 Respiratory Rate 14 09/28/24 15:06 Respiratory Effort Normal, Non-Labored 09/28/24 15:06 Respiratory Depth Normal 09/28/24 15:06 Respiratory Pattern Normal 09/28/24 15:06 Blood Pressure 145/75 H 09/28/24 15:06 Blood Pressure Mean 98 09/28/24 15:06 Blood Pressure Position Sitting 09/28/24 15:06 Pulse Oximetry 96 09/28/24 15:06 Oxygen Delivery Method Room Air 09/28/24 15:06 Oxygen Flow Rate 0 09/28/24 15:06 Pain Level 6 09/28/24 13:52 Medical Decision Making 64-year-old male presents for evaluation of left ankle pain and swelling after injury. At time my evaluation he is neurologically intact. X-ray of foot and ankle negative for fracture. Soft tissue swelling seen. Patient will continue symptomatic treatment at home. He is given Jayson wrap to use as needed. He will follow-up with orthopedics or primary care if not improved. 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 (Acute) Erectile dysfunction (Acute) Prostate cancer (Chronic) Status post reverse total replacement of left shoulder (Acute 01/25/22) Follow up (Acute) Left rotator cuff tear (Acute) Arthritis of left glenohumeral joint (Acute) Problems related to lack of adequate sleep (Acute) Ventricular ectopy (Acute) Elevated PSA (Acute) Bicuspid aortic valve (Acute) Hypertension (Chronic) Aortic root dilation (Acute) Rosacea (Acute) Medical History Tendinitis of long head of biceps brachii of left shoulder Hemorrhoids Heart murmur Surgical History History of appendectomy History of right knee joint replacement (~11/2017) OPEN RI (12/15/14) RACHAEL GRAY Colonoscopy - [facility] [place] (02/08/16) Family History Mother , at age 73 from cardiac arrest. No problems noted. Brother Heart disease [place]. Father Cancer Social History Smoking/Tobacco Use Status: Never Smoking risk assessment performed?: Yes Alcohol Intake: current Alcohol Intake frequency: a few times a month Drug use: Never Substance use type: does not use Current gender identity: male What type of physical activity do you participate in: walking, independent ambulation and normal ROM and activity Do you feel safe at home: Yes Do you feel safe in your relationship?: Yes
== END 2024-09-28 15:53 | disposition home or self-care (01) ==
PROVIDERS: Emergency Provider Emergency Medicine Emergency Medical Services; PCP Family Medicine
DX: S93.402A Sprain of unspecified ligament of left ankle, initial encounter (principal); X58.XXXA Exposure to other specified factors, initial encounter
CPT/HCPCS: 99283 ×2; 73610; 73630

== ENCOUNTER 2024-10-07 01:25 | Outpatient (CLI) | payer MEDICARE, BC, SELFPAY ==
--- NOTE | 2024-10-07 06:15 | DI.CT_ITS ---
Exam(s) CT LOWER EXTREMITY RT WO EXAM: CT LOWER EXTREMITY RT WO CLINICAL HISTORY: R KNEE PAIN,h/o rt knee joint replacement,z96.651. TECHNIQUE: Imaging Protocol: Axial computed tomography images with coronal and sagittal reformatted images were created and reviewed. COMPARISON: NM NM BONE SCAN WHOLE BODY GRP from 03/05/2023 CR XR KNEE RT 3V AP,LAT,GREY from 09/21/2024 FINDINGS: There is artifact from the patient's right total knee arthroplasty. Bones: The patient has a right total knee arthroplasty. There are no suspicious lucency seen around the femoral component of the prosthesis. The patella is intact. There is artifact seen at the tibial component, but there does appear to be lucency at the bone prosthetic interface, particularly medi ally (series 18, images 25 through 34.). There is no acute fracture present. There is a small joint effusion. There are enthesophytes at the anterior patella. Soft Tissues: Normal. IMPRESSION: 1. Findings suspicious for loosening at the medial and anterior aspect of the tibial prosthesis. 2. Small joint effusion is present. RADIATION DOSE DELIVERED: 169.27mGy.cm Total DLP 169.27mGy.cm Total DLP DATA REPOSITORY: All CT scans at this facility are submitted to the National Radiology Data Registry (NRDR) Dose Index Registry (DIR) with the [employer] (A[employer]). RADIATION OPTIMIZATION: All CT scans at this facility use at least one of these dose optimization techniques: automated exposure control; mA and/or kV adjustment per patient size (includes targeted exams where dose is matched to clinical indication); or iterative reconstruction.
--- NOTE | 2024-10-07 06:15 | DI.NM_ITS ---
Exam(s) [place] BONE SCAN 3 PHASE EXAM: [place] BONE SCAN 3 PHASE CLINICAL HISTORY: ? LOOSENING,rt knee pain, h/o rt knee joint replacement,z96.651. TECHNIQUE: Injected Dose: 25 mCi Tc-99m MDP COMPARISON: [facility] BONE SCAN WHOLE BODY GRP from 03/05/2023 CR XR KNEE RT 3V AP,LAT,GREY from 09/21/[address] LOWER EXTREMITY RT WO from 10/07/2024 FINDINGS: Perfusion: Mild hyperemia around the right knee. Blood Pool: Mildly increased activity around the right knee prosthesis. Delayed: Increased activity seen beneath the tibial tray both laterally and medially which is suspicious for loosening. Findings appear similar to the previous bone scan. There is also some increased activity at the patella. Whole body images show increased activity in the medial femoral tibial joint space of the left knee consistent with degenerative changes. There is a photopenic defect at the proximal left humerus related to shoulder prosthesis. There are no areas of increased activity which are suspicious for metastatic disease. IMPRESSION: Increased activity beneath the tibial component of the prosthesis which is suspicious for loosening. DATA REPOSITORY:
== END 2024-10-07 01:45 ==
LOC: DI 01:26
PROVIDERS: PCP Family Medicine; Visit Provider Student in an Organized Health Care Education/Training Program
DX: Z47.1 Aftercare following joint replacement surgery (principal); Z96.651 Presence of right artificial knee joint
CPT/HCPCS: 73700; 78315

== ENCOUNTER 2024-10-15 11:11 | Outpatient (CLI) | payer MEDICARE, BC, SELFPAY ==
[2024-10-15 10:40] LABS: ESR 12 mm/hr (0-20)
[2024-10-15 11:22] LABS: C-Reactive Protein < 0.50 mg/dL (<or=0.5)
== END 2024-10-15 11:12 | disposition home or self-care (01) ==
LOC: LBO 11:14
PROVIDERS: PCP Family Medicine; Visit Provider Student in an Organized Health Care Education/Training Program
DX: Z96.651 Presence of right artificial knee joint (principal)
CPT/HCPCS: 36415; 85652; 86140

== ENCOUNTER → 2024-11-02 10:46 | Outpatient (BNVA) | payer MEDICARE, BC, SELFPAY | PROVIDERS: PCP Family Medicine; Referring Provider Family Medicine; Visit Provider Student in an Organized Health Care Education/Training Program | DX: T84.032A Mechanical loosening of internal right knee prosthetic joint, initial encounter (principal) | CPT/HCPCS: 99214 ==

== ENCOUNTER 2024-12-02 08:44 | Outpatient (REF) | payer MEDICARE, BC, SELFPAY | END 2024-12-02 08:45 | disposition home or self-care (01) | LOC: NCHCN 08:44 | PROVIDERS: PCP Family Medicine; Visit Provider Family Medicine | DX: C61 Malignant neoplasm of prostate (principal) | CPT/HCPCS: 84154 ==

== ENCOUNTER → 2024-12-25 08:47 | Outpatient (BNVA) | payer MEDICARE, BC, SELFPAY | PROVIDERS: PCP Family Medicine; Referring Provider Family Medicine; Visit Provider Physician Assistant | DX: M17.12 Unilateral primary osteoarthritis, left knee (principal) | CPT/HCPCS: 20610; J1010 ==

== ENCOUNTER 2025-01-14 12:40 | Outpatient (REF) | payer MEDICARE, BC, SELFPAY ==
[2025-01-14 15:21] LABS: HCT 40.4 % (40.0-50.0); HGB 14.2 g/dL (13.5-17.5); MCH 31.4 pg (27.0-33.0); MCHC 35.1 % (32.0-36.0); MCV 89 fL (80-95); MPV 9.2 fL (8.0-11.0); Platelet Count 259 10^3/uL (130-400); RBC 4.52 10^6/uL (4.36-5.78); RDW 11.9 % (11.8-14.1); RDW-SD 38.5 fL; WBC 5.25 10^3/uL (4.4-10.8)
[2025-01-14 15:49] LABS: Anion Gap 7.9 mmol/L (3-11); BUN 13 mg/dL (9-23); CO2 25.1 mmol/L (20.0-31.0); Calcium 9.3 mg/dL (8.3-10.6); Chloride 105 mmol/L (98-107); Glucose 88 mg/dL (74-106); Potassium 4.6 mmol/L (3.5-5.1); Sodium 138 mmol/L (136-145)
== END 2025-01-14 12:41 | disposition home or self-care (01) ==
LOC: NCHCN 12:40
PROVIDERS: PCP Family Medicine; Visit Provider Family Medicine
DX: Z01.818 Encounter for other preprocedural examination (principal)
CPT/HCPCS: 80048; 85027

== ENCOUNTER → 2025-01-19 01:31 | Outpatient (CLI) | payer MEDICARE, BC, SELFPAY ==
--- NOTE | 2025-01-19 06:15 | DI.US_ITS ---
APPROVED REPORT EXAM: Comprehensive 2D, Doppler, and color-flow Echocardiogram Patient Location: Out-Patient Exploration Driller: Em Renee RDCS (AE) Indications: Bicuspid aortic valve Other Information Study Quality: Good Conclusion Normal left ventricular wall thickness and chamber size. Ejection fraction is 59%. Wall motion is normal Normal right ventricular size and function Moderately dilated left atrium. Normal right atrial size The aortic valve is calcified and bicuspid. There is mild aortic stenosis. Highest mean gradient is 19 mmHg. There is mild to moderate aortic regurgitation Mild mitral and tricuspid regurgitation. Estimated right ventricular systolic pressure is 24 mmHg Mildly dilated aortic root and ascending aorta Wall motion Left Ventricle The left ventricle is normal size. The left ventricular systolic function is normal. The left ventricular ejection fraction is within the normal range. There is normal left ventricular wall thickness. There is normal LV segmental wall motion. There is no ventricular septal defect visualized. LVEF is 59%. Right Ventricle The right ventricle is normal size. The right ventricular systolic function is normal. Atria Left atrium is moderately dilated. The right atrium size is normal. The interatrial septum is intact with no evidence for an atrial septal defect. Aortic Valve Aortic valve is calcified. Aortic valve is bicuspid. Mild aortic stenosis. Highest mean aortic valve gradient is 18.96mmHg. Peak aortic valve gradient is 33.21mmHg. Calculated BREONNA by the continuity equation is 1.1cm2. Mild to moderate aortic regurgitation. Mitral Valve The mitral valve is normal in structure. No evidence of mitral valve stenosis. Mild mitral regurgitation. Tricuspid Valve The tricuspid valve is normal in structure. There is no tricuspid valve stenosis. Mild tricuspid regurgitation. The RVSP is 24.0 mmHg. Pulmonic Valve The pulmonary valve is normal in structure. There is no pulmonic valvular stenosis. Trace pulmonic regurgitation. Great Vessels Aortic root is mildly dilated. The ascending aorta is mildly dilated. Aortic arch is not well visualized. IVC is normal in size and collapses >50% with inspiration. Pericardium There is no pericardial effusion. 2D Dimensions IVSD d PLAX 1.10 cm M: 0.6-1.2 Ao Root d 3.95 cm M: 3.1 - 3.7 LVPW d PLAX 1.10 cm M: 0.6 - 1.2 Ao Asc Diam d 3.84 cm M: 2.6 - 3.4 LVID d PLAX 5.10 cm M: 4.2 - 5.8 LVDs 3.50 cm M: 2.5 - 4.0 LV EF Teichholz 59.9 % FS 32.09 % LV EDV (Teich) 123.7 mL LV ESV (Teich) 49.6 mL M-Mode TAPSE 2.42 cm (M/F) >1.7 Auto EF LV EDV A4C 188.3 mL LV EDV A2C 228.0 mL LV EDV BP 213.1 mL LV ESV A4C 79.4 mL LV ESV A2C 96.3 mL LV ESV BP 88.6 mL LVEF(%) A4C 57.8 % LVEF(%) A2C 57.8 % LVEF(%) BP 58.4 % LV SV A4C 108.9 ml LV SV A2C 131.7 ml LV SV BP 124.4 ml LV CO A4C 6.3 L/min LV CO A2C 8.5 L/min LV CO BP 7.4 L/min HR A4C 57.49 BPM HR A2C 64.75 BPM LV EDV Index (BP) LA Volume LA Length A4C 5.7 cm LA Length A2C 5.9 cm LA Area A4C s 24.92 cm2 LA Area A2C s 29.74 cm2 LA Vol A4C A-L 92.17 mL LA Vol A2C A-L 127.07 mL LA Vol Biplane A- L 110.0 mL LA Vol/BSA A4C A-L LA Vol/BSA A2C A-L LA Vol/BSA BP A-L 54.4 mL/m2 LA Vol A4C MOD 84.9 mL LA Vol A2C MOD 118.0 mL LA Vol BP MOD 101.5 mL RA Volume RA Area A4C 14.7 cm2 RA ESV A4C (A-L) 40.8mL RA Vol/BSA A4C A-L RA Length A4C 4.5 cm RA ESV A4C (MOD) 38.3mL LV Diastology MV E' medial 0.072 (>0.07 m/s) MV E Vmax 0.75 (0.4-1.3 m/s) MV E/E' MED 10.35 (<14) MV A Vmax 0.80 (0.4-1.3 m/s) MV E' lateral 0.098 (>0.1 m/s) E/A Ratio 0.9 MV E/E' LAT 7.62 (<14) MV E' Average 0.085 m/s MV E/E'(average) 8.78 Aortic Valve AoV Vmax 2.88 m/s LVOT Vmax 1.06 m/s AoV Peak Grad 54.8 mmHg LVOT Peak Grad 4.5 mmHg AoV Area (Vmax) 1.16 cm2 LVOT VTI 0.247 m AoV VTI 0.692 m LVOT Mean Grad 2.8 mmHg AoV Mean Chuy. 2.07 m/s LVOT SV 78.18 mL AoV Mean Grad 19.0 mmHg LVOT Diam s 2.00 cm AoV Area (VTI) 1.13 cm2 AV Regurg Peak Gr. 33.21 mmHg Velocity Ratio 0.37 AR Decel Mcculloch 2.8m/sec2 AR DT 1542 msec AR PHT 447 msec AR Vmax 4.37 m/s Mitral Valve MV DT 393 (160-240 msec) MV Vmax TIPS 0.92 m/s MV Mean Grad 1.4 (<2mmHg) MV VTI 0.280 m Pulmonary Valve PV Vmax 0.75 (0.5-1.5 m/s) RVOT Vmax 0.66 m/s PV Peak Grad 2.2 mmHg RVOT Peak Gr. 1.8 mmHg PV Mean Chuy 0.54 m/s RVOT VTI 0.129 m PV Mean Grad 1.3 mmHg RVOT Mean Gr. 0.8 mmHg Tricuspid Valve RA Pressure 3.00 mmHg TR Vmax 2.29 m/s TV S' 0.14 m/s TR Peak Grad 20.9 mmHg RVSP (TR) 24.0 mmHg
== END ==
LOC: DI 01:31
PROVIDERS: PCP Family Medicine; Visit Provider Registered Nurse
DX: Q23.1 Congenital insufficiency of aortic valve (principal); I08.1 Rheumatic disorders of both mitral and tricuspid valves
CPT/HCPCS: 93306

== ENCOUNTER 2025-01-25 10:32 | Outpatient (CLI) | payer MEDICARE, BC, SELFPAY ==
[2025-01-25 11:34] LABS: HCT 41.5 % (40.0-50.0); HGB 14.6 g/dL (13.5-17.5); MCH 31.5 pg (27.0-33.0); MCHC 35.2 % (32.0-36.0); MCV 90 fL (80-95); MPV 8.4 fL (8.0-11.0); Platelet Count 265 10^3/uL (130-400); RBC 4.63 10^6/uL (4.36-5.78); RDW 11.9 % (11.8-14.1); RDW-SD 38.6 fL; WBC 5.79 10^3/uL (4.4-10.8)
[2025-01-25 12:08] LABS: Anion Gap 8.2 mmol/L (3-11); BUN 12 mg/dL (9-23); CO2 25.8 mmol/L (20.0-31.0); Calcium 9.6 mg/dL (8.3-10.6); Chloride 102 mmol/L (98-107); Glucose 103 mg/dL (74-106); Potassium 4.3 mmol/L (3.5-5.1); Sodium 136 mmol/L (136-145)
== END 2025-01-25 10:33 | disposition home or self-care (01) ==
LOC: LBO 10:32
PROVIDERS: PCP Family Medicine; Visit Provider Student in an Organized Health Care Education/Training Program
DX: T84.032A Mechanical loosening of internal right knee prosthetic joint, initial encounter (principal); Z01.818 Encounter for other preprocedural examination
CPT/HCPCS: 36415; 80048; 85027

== ENCOUNTER → 2025-01-26 13:48 | Outpatient (BNVA) | payer MEDICARE, BC, SELFPAY | PROVIDERS: PCP Family Medicine; Referring Provider Family Medicine; Visit Provider Physician Assistant | DX: Z01.818 Encounter for other preprocedural examination (principal); T84.032A Mechanical loosening of internal right knee prosthetic joint, initial encounter; T84.82XA Fibrosis due to internal orthopedic prosthetic devices, implants and grafts, initial encounter | CPT/HCPCS: 99024 ==

== ENCOUNTER → 2025-02-01 09:29 | Outpatient (BNVA) | payer MEDICARE, BC, SELFPAY | PROVIDERS: PCP Family Medicine; Visit Provider Registered Nurse | DX: Q23.1 Congenital insufficiency of aortic valve (principal); Z01.810 Encounter for preprocedural cardiovascular examination | CPT/HCPCS: 99214 ==

== ENCOUNTER 2025-02-09 06:00 | Inpatient (IN) | payer MEDICARE, BC, SELFPAY ==
[2025-02-09] VITALS (20 sets, daily range): BP systolic 96–166; BP diastolic 45–71; PULSE 60–95; RESP 14–21; TEMP 36.1–37.6; O2SAT 92–97; BMI 30.3
--- NOTE | 2025-02-09 | DI.RAD_ITS ---
Exam(s) XR KNEE RT 2V AP,LAT EXAM: XR KNEE RT 2V AP,LAT INDICATION: s/p Revision R TKA. COMPARISON: CR XR KNEE RT 3V AP,LAT,GREY from 09/21/2024 TECHNIQUE: 2D digital imaging was performed. Two views. FINDINGS: Patient is status post revision of the total knee prosthesis. The alignment of the components appears satisfactory. There is expected residual postsurgical air in the soft tissues and joint space. DATA REPOSITORY: RADIATION DOSE DELIVERED:
[2025-02-09] MEDS: Acetaminophen 500 MG TAB 1000 MG PO ×2 (10:39→21:27)
[2025-02-09] MEDS: Celecoxib 200 MG CAP 400 MG PO (10:39)
[2025-02-09] MEDS: Gabapentin 300 MG CAP PO ×2 (10:40→21:28)
[2025-02-09] MEDS: Lactated Ringers 1,000 ML 80 ML IV (10:55)
--- NOTE | 2025-02-09 11:01 | W.ANESPRE ---
General Info Date of Service Date Performed: 02/09/25 Height: 5 ft 8 in Weight: 90.6 kg Body Mass Index (BMI): 30.3 Surgical Procedure: Operation Date: 02/09/25 12:10 Proposed Procedure Side Surgeon p Knee Total Revision Right Harvinder Kidd MD Meds Allergies and Home Medications Allergies Allergy/AdvReac Type Severity Reaction Status Date / Time No Known Allergies Allergy Verified 02/09/25 10:25 Home Medication ?Medication ?Instructions ?Recorded metronidazole 0.75 % topical cream 1 applic topical DAILY 08/08/20 lorazepam 0.5 mg tablet 0.5 mg PO DAILY PRN pre-medication 09/26/22 for MRI #2 tabs tadalafil 20 mg tablet (Cialis) 20 mg PO DAILY PRN sexual activity 10/28/24 #10 tabs naproxen sodium 220 mg tablet 220 mg PO BID PRN 12/25/24 (Aleve) Current Visit Medications: Current Medications Generic Name Dose Route Start Last Admin Trade Name Freq PRN Reason Stop Dose Admin Acetaminophen 1,000 mg 02/09/25 06:00 02/09/25 10:39 Acetaminophen 500 Mg Tab PO 02/09/25 23:59 1,000 mg PREOP LAZARO Administration Acetaminophen 1,000 mg 02/09/25 08:30 Acetaminophen 500 Mg Tab PO TID LAZARO Aspirin 81 mg 02/09/25 20:00 Aspirin E.C. 81 Mg Tabec PO BID LAZARO Celecoxib 400 mg 02/09/25 06:00 02/09/25 10:39 Celecoxib 200 Mg Cap PO 02/09/25 23:59 400 mg PREOP LAZARO Administration Celecoxib 200 mg 02/09/25 20:00 Celecoxib 200 Mg Cap PO BID LAZARO Dexamethasone 4 mg 02/10/25 08:30 Dexamethasone 4 Mg Tab PO 02/11/25 08:31 DAILY LAZARO Docusate Sodium 100 mg 02/09/25 07:19 Docusate Sodium 100 Mg Cap PO BID PRN PRN Constipation Gabapentin 300 mg 02/09/25 06:00 02/09/25 10:40 Gabapentin 300 Mg Cap PO 02/09/25 23:59 300 mg PREOP LAZARO Administration Gabapentin 300 mg 02/09/25 20:00 Gabapentin 300 Mg Cap PO HS LAZARO Hydromorphone HCl 0.5 mg 02/09/25 07:19 Hydromorphone 2 Mg/Ml Syr IVP Q2H PRN PRN Ringer's Solution 1,000 mls @ 80 mls/hr 02/09/25 06:00 IV 02/09/25 23:59 INFUSION LAZARO Cefazolin Sodium 3,000 mg/ 100 mls @ 200 mls/hr 02/09/25 06:00 Sodium Chloride IV 02/09/25 23:59 PREOP LAZARO Cefazolin Sodium/Dextrose 1 gm in 50 mls @ 100 mls/hr 02/09/25 08:00 Ancef Duplex IVPB 02/10/25 00:29 Q8H LAZARO Ondansetron HCl 4 mg 02/09/25 07:19 Ondansetron 4 Mg/2 Ml Vial IVP Q6H PRN PRN Nausea Oxycodone HCl 0 mg 02/09/25 07:19 Oxycodone 5 Mg Tab PO Q3H PRN PRN Pain Pantoprazole Sodium 40 mg 02/10/25 07:30 Pantoprazole 40 Mg Tabcr PO DAILY@0730 [facility] Polyethylene Glycol 17 gm 02/09/25 07:19 Polyethylene Glycol 3350 17 Gm Packet PO BID PRN PRN Constipation Sodium Chloride 0 ml 02/09/25 06:00 Normal Saline Flush 10 Ml Syr IV 02/09/25 23:59 PRN PRN Sodium Chloride 0 ml 02/09/25 06:00 Normal Saline 10 Ml Vial IJ 02/09/25 23:59 DIRECTED PRN Sterile Water 0 ml 02/09/25 06:00 Water,Injection,Sterile 10 Ml Vial IJ 02/09/25 23:59 DIRECTED PRN Tranexamic Acid 1,300 mg 02/09/25 07:19 Tranexamic Acid 650 Mg Tab PO ONCE PRN postoperative PFSH Active Problems Active Problems: Problem Status Onset Code H/O inguinal hernia repair Acute Z98.890, Z87.19 Localized osteoarthritis of left knee Chronic M17.12 Mechanical loosening of internal right knee prosthetic joint Acute T84.032A Arthrofibrosis of total knee arthroplasty Acute T84.82XA Erectile dysfunction Acute N52.9 Prostate cancer Chronic C61 Status post reverse total replacement of left shoulder Acute 01/25/22 Z96.612 Follow up Acute Z09 Left rotator cuff tear Acute M75.102 Arthritis of left glenohumeral joint Acute M19.012 Problems related to lack of adequate sleep Acute Z72.820 Ventricular ectopy Acute I49.3 Elevated PSA Acute R97.20 Hypertension Chronic I10 Aortic root dilation Acute I77.810 Bicuspid aortic valve Acute Q23.1 Rosacea Acute L71.9 Medical History Medical History (Updated 02/09/25 @ 10:34 by Rosemarie Matos) Tendinitis of long head of biceps brachii of left shoulder Hemorrhoids Heart murmur Surgical History Surgical History History of appendectomy History of right knee joint replacement (~11/2017) OPEN RI (12/15/14) RACHAEL GRAY Colonoscopy - MAC (02/08/16) Tobacco Smoking/Tobacco Use Status: Never Alcohol Alcohol Intake: current Alcohol intake frequency: a few times a month Substance Use Substance use: Never Substance use type: does not use Vital Signs and Lab Results Vital Signs Most Recent Vital Signs in EMR: Most Recent Vital Signs Temp Pulse Resp BP Pulse Ox 36.1 C L 61 16 166/71 H 97 02/09/25 09:45 02/09/25 09:45 02/09/25 09:45 02/09/25 09:45 02/09/25 09:45 Lab Results Complete Blood Count: WBC, (4.4-10.8) 5.79 10^3/uL 01/25/25, 11: RBC, (4.36-5.78) 4.63 10^6/uL 01/25/25, 11:26 Hgb, (13.5-17.5) 14.6 g/dL 01/25/25, 11:26 Hct, (40.0-50.0) 41.5 % 01/25/25, 11:26 Plt Count, (130-400) 265 10^3/uL 01/25/25, 11:26 Complete Metabolic Panel: Sodium, (136-145) 136 mmol/L 01/25/25, 11:26 Potassium, (3.5-5.1) 4.3 mmol/L 01/25/25, 11: Chloride, (98-107) 102 mmol/L 01/25/25, 11:26 Carbon Dioxide, (20.0-31.0) 25.8 mmol/L 01/25/25, 11:26 BUN, (9-23) 12 mg/dL 01/25/25, 11:26 Creatinine, (0.73-1.18) 0.80 mg/dL 01/25/25, 11:26 Est GFR (CKD-EPI 2020), (mL/min/1.73m2) 96.83 01/25/25, 11:26 Calcium, (8.3-10.6) 9.6 mg/dL 01/25/25, 11:26 Glucose, (74-106) 103 mg/dL 01/25/25, 11:26 Imaging and Studies Imaging and Studies Study information below may be from another EMR and interpreted by another provider. Please see original notes in EMR for more complete details. EKG Summary: EKG PATIENT NAME: Charles Arreaga UNIT #: [id number] ORDERING PROVIDER: Kait Mitchell DNP PRIMARY CARE PROVIDER: FRANSISCA COLEMAN DATE/TIME OF SERVICE: 02/03/24922 : 1960 PERFORMING LOCATION: .CARD APPROVED REPORT Exam: Resting ECG Reason for Exam: ventricular ectopy Patient Location: O HR:67 bpm ECG Measurements Heart Rate 67 AXIS OH 171 P 53 QRSd 103 QRS -4 QT 382 T12 QTc 404 Conclusion Sinus rhythm...normal P axis, V-rate 50- 99 <Electronically signed by SEGUNDO NORRIS MD in OV> E-Sign Date: 02/04/24 E-Sign Time: 0752 Echocardiogram Summary: Patient Name: Charles Arreaga Unit #: [id number] Loc: Ordering Provider: Kait Mitchell DNP Status: REG CLI Primary Care Provider: Yariel Ritter M.D. Date of Exam: 01/19/25 Sex: M Admission Date: 01/19/25 : 1960 Age: 64 APPROVED REPORT EXAM: Comprehensive 2D, Doppler, and color-flow Echocardiogram Patient Location: Out-Patient Compliance Review Specialist: Em Renee RDCS (AE) Indications: Bicuspid aortic valve Other Information Study Quality: Good Conclusion Normal left ventricular wall thickness and chamber size. Ejection fraction is 59%. Wall motion is normal Normal right ventricular size and function Moderately dilated left atrium. Normal right atrial size The aortic valve is calcified and bicuspid. There is mild aortic stenosis. Highest mean gradient is 19 mmHg. There is mild to moderate aortic regurgitation Mild mitral and tricuspid regurgitation. Estimated right ventricular systolic pressure is 24 mmHg Mildly dilated aortic root and ascending aorta Wall motion Left Ventricle The left ventricle is normal size. The left ventricular systolic function is normal. The left ventricular ejection fraction is within the normal range. There is normal left ventricular wall thickness. There is normal LV segmental wall motion. There is no ventricular septal defect visualized. LVEF is 59%. Right Ventricle The right ventricle is normal size. The right ventricular systolic function is normal. Atria Left atrium is moderately dilated. The right atrium size is normal. The interatrial septum is intact with no evidence for an atrial septal defect. Aortic Valve Aortic valve is calcified. Aortic valve is bicuspid. Mild aortic stenosis. Highest mean aortic valve gradient is 18.96mmHg. Peak aortic valve gradient is 33.21mmHg. Calculated BREONNA by the continuity equation is 1.1cm2. Mild to moderate aortic regurgitation. Mitral Valve The mitral valve is normal in structure. No evidence of mitral valve stenosis. Mild mitral regurgitation. Tricuspid Valve The tricuspid valve is normal in structure. There is no tricuspid valve stenosis. Mild tricuspid regurgitation. The RVSP is 24.0 mmHg. Pulmonic Valve The pulmonary valve is normal in structure. There is no pulmonic valvular stenosis. Trace pulmonic regurgitation. Great Vessels Aortic root is mildly dilated. The ascending aorta is mildly dilated. Aortic arch is not well visualized. IVC is normal in size and collapses >50% with inspiration. Pericardium There is no pericardial effusion. 2D Dimensions IVSD d PLAX 1.10 cm M: 0.6-1.2Ao Root d 3.95 cm M: 3.1 - 3.7 LVPW d PLAX 1.10 cm M: 0.6 - 1.2Ao Asc Diam d 3.84 cm M: 2.6 - 3.4 LVID d PLAX 5.10 cm M: 4.2 - 5.8 LVDs 3.50 cm M: 2.5 - 4.0 LV EF Teichholz 59.9 % FS32.09 % LV EDV (Teich)123.7 mL LV ESV (Teich)49.6 mL M-Mode TAPSE 2.42 cm (M/F) >1.7 Auto EF LV EDV L0S227.3 mLLV EDV P3N307.0 mLLV EDV BP213.1 mL LV ESV A4C79.4 mLLV ESV A2C96.3 mLLV ESV BP88.6 mL LVEF(%) A4C57.8 %LVEF(%) A2C57.8 %LVEF(%) BP58.4 % LV SV L5B668.9 mlLV SV Y0S754.7 mlLV SV BP124.4 ml LV CO A4C6.3 L/minLV CO A2C8.5 L/minLV CO BP7.4 L/min HR A4C57.49 BPMHR A2C64.75 BPMLV EDV Index (BP) LA Volume LA Length A4C5.7 cmLA Length A2C5.9 cm LA Area A4C s 24.92 cm2LA Area A2C s 29.74 cm2 LA Vol A4C A-L92.17 mLLA Vol A2C A-L127.07 mLLA Vol Biplane A-L110.0 mL LA Vol/BSA A4C A-LLA Vol/BSA A2C A-LLA Vol/BSA BP A-L 54.4 mL/m2 LA Vol A4C MOD84.9 mLLA Vol A2C ZGL451.0 mLLA Vol BP QNK230.5 mL RA Volume RA Area A4C14.7 cm2RA ESV A4C (A-L)40.8mLRA Vol/BSA A4C A-L RA Length A4C4.5 cmRA ESV A4C (MOD)38.3mL LV Diastology MV E' medial0.072 (>0.07 m/s)MV E Vmax 0.75 (0.4-1.3 m/s) MV E/E' MED10.35 (<14)MV A Vmax 0.80 (0.4-1.3 m/s) MV E' lateral0.098 (>0.1 m/s)E/A Ratio 0.9 MV E/E' LAT7.62 (<14) MV E' Average0.085 m/s MV E/E'(average)8.78 Aortic Valve AoV Vmax2.88 m/sLVOT Vmax 1.06 m/s AoV Peak Grad54.8 mmHgLVOT Peak Grad 4.5 mmHg AoV Area (Vmax)1.16 pc0ESNJ VTI0.247 m AoV VTI0.692 mLVOT Mean Grad 2.8 mmHg AoV Mean Chuy.2.07 m/sLVOT SV 78.18 mL AoV Mean Grad19.0 mmHgLVOT Diam s 2.00 cm AoV Area (VTI)1.13 cm2AV Regurg Peak Gr.33.21 mmHg Velocity Ratio 0.37 AR Decel Slope2.8m/sec2 AR DT 1542 msec AR PHT 447 msec AR Vmax 4.37 m/s Mitral Valve MV DT 393 (160-240 msec) MV Vmax TIPS 0.92 m/s MV Mean Grad 1.4 (<2mmHg) MV VTI 0.280 m Pulmonary Valve PV Vmax 0.75 (0.5-1.5 m/s)RVOT Vmax 0.66 m/s PV Peak Grad 2.2 mmHgRVOT Peak Gr.1.8 mmHg PV Mean Vel0.54 m/sRVOT VTI0.129 m PV Mean Grad 1.3 mmHgRVOT Mean Gr.0.8 mmHg Tricuspid Valve RA Pressure 3.00 mmHgTR Vmax 2.29 m/s TV S'0.14 m/sTR Peak Grad 20.9 mmHg RVSP (TR) 24.0 mmHg Ordered By: Kait Mitchell DNP CC: Dictated By: Segundo Norris M.D. 01/19/25 1205 <Electronically signed by Segundo Norris M.D. in OV> 01/19/25 1229 Transcribed By: Segundo Norris MD 01/19/25 1205 This is privileged, confidential information intended only for the provider named. Any use or distribution by any person other than this provider is strictly prohibited. If you receive this report in error, please notify us immediately at [phone] and return the original report to us at the address above. Thank-you. Anesthesia Assessment and Plan Anesthesia History Personal History: No History of Anesthesia Complications Family History: No Family History of Anesthesia Complications Exercise Tolerance Exercise Tolerance: Metabolic Equivalents>4 Pertinent Negatives Pertinent Negatives: No Symptoms of GERD, No Major Pulmonary Symptoms or Complaints and No History of CVA/TIA Cardiac & Pulmonary Exam Cardiac Exam: Normal S1/S2 Heart Sounds Pulmonary Exam: Clear Bilateral Breath Sounds Implantable Cardiac Device Does patient have a Pacemaker or an ICD?: No Airway Exam Known Difficult Airway: No Mallampati Class: 2 Mouth Opening: Normal (> 3cm) Thyromental Distance: Less than 3 cm Neck Range of Motion: Full ROM Neck Circumference: Normal Teeth Condition: Normal Dentition ASA Classification ASA Score: ASA 3 Emergency Case?: No NPO Status NPO Status: NPO Clears >2 hours, Solids >8 hours Anesthesia Plan Resuscitation Status: Full Code Anesthesia Technique: Spinal Anesthesia Airway Planned: Natural Airway Pain Management: Surgeon and patient request nerve block Monitors Used: Standard Monitors
[2025-02-09] MEDS: ceFAZolin 3,000 MG in Normal Saline 100 ML 200 MG IV (12:00)
[2025-02-09] MEDS: TRANEXAMIC ACID/SOD. CHL. 1,000 MG/100 ML BAG 100 MG (12:10)
--- NOTE | 2025-02-09 12:28 | W.ANESNERVE ---
Nerve Block Single Injection Procedure Date and Time Date Performed: 02/09/25 Procedure Start: 11:40 Location Where Procedure Performed Procedure Location: Day Surgery Unit Reason Performed: Postoperative Analgesia Requesting Provider: Harvinder Kidd Timeout Performed Timeout Performed: Yes Monitoring Used ECG, Blood Pressure and SpO2 Sterility Sterility: Hand Hygiene, Surgical Cap, Surgical Mask, Sterile Gloves and Chlorhexidine Sedation Given During Procedure Sedation Given (Indicate Dose Given): Versed IV Dose:: 2 mg Patient Mental Status Patient Mental Status: Sedate with meaningful communication Nerve Block 1st Nerve Block: Laterality: Right Block Type: Adductor Canal Ultrasound Image Saved?: Yes Needle / Catheter Used: 100mm SonoPlex II Local Anesthetic Bolus (Indicate Dose Given): Lidocaine used for local infiltration of skin, Injected in 3-5ml increments after negative blood aspiration, Bupivacaine 0.25% Dose:: 10 ml and Exparel Dose:: 10 ml Additives (Indicate Dose Given): None Ultrasound: Sterile probe cover and gel used Nerve Stimulator: Supplement to Ultrasound use and No twitch or parasthesia noted < 0.5 mA Paresthesia: None Procedure Tolerated: No Complications and Patient tolerated well Procedure Outcome: Successful Performed By: Ramírez Javier 2nd Nerve Block: Laterality: Right Block Type: Other (Anterior Femoral Cutaneous Nerve Block) Ultrasound Image Saved?: Yes Needle / Catheter Used: 100mm SonoPlex II Local Anesthetic Bolus (Indicate Dose Given): Lidocaine used for local infiltration of skin, Injected in 3-5ml increments after negative blood aspiration and Bupivacaine 0.25% Dose:: 10 ml Additives (Indicate Dose Given): None Ultrasound: Sterile probe cover and gel used Nerve Stimulator: Supplement to Ultrasound use and No twitch or parasthesia noted < 0.5 mA Paresthesia: None Procedure Tolerated: No Complications and Patient tolerated well Procedure Outcome: Successful Performed By: Ramírez Javier
[2025-02-09] MEDS: ROPIvacaine/EPI/CLONIDINE/KET 50 ML SYRINGE IJ (14:43)
--- NOTE | 2025-02-09 15:21 | W.PM.OP ---
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 POST-OP DIAGNOSIS: same PROCEDURE: Revision Total Knee Replacement - RIGHT SURGEON: Harvinder Kidd ADOLESCENT MEDICINE SPECIALIST: Elaine Ryan ANESTHESIA TYPE: General LMA/ETT Refer to Anesthesia Record ESTIMATED BLOOD LOSS: 300 PATHOLOGY: none sent COMPLICATIONS: None Patient was transported to: PACU Patient's condition: stable Implants: TIBIA: Depuy Attune Revision Tibial Tray, Size 7 - 14x50 Cemented Tibial Stem - Cementless Cone, Medium FEMUR: Depuy Attune Revision CRS Femoral Component, Size 7 - [id number] Cemented Femoral Stem - Cementless Cone, Small - 4mm Distal Augments, Medial and Lateral POLY: Depuy Attune CRS Rotating Platform, 7x14mm Indications: I have seen Charles in clinic for symptoms of ongoing knee pain. He developed worsening pain and stiffness about the knee over the last year and bone scan and CT scan confirms signs of loosening of the knee prosthesis. I discussed the technical details of a revision knee replacement. I explained the risks of the procedure to include, but not limited to, bleeding, infection, pain, stiffness, fracture, damage to nerves and vessels, damage to muscles and tendons, loosening, need for repeat procedure, blood clot and cardiopulmonary demise. Despite these risks, Charles elected to proceed. Procedure Description: Charles was greeted in the preoperative holding area where the correct side was identified and marked. The consent was reviewed with the patient and signed. The history and physical was updated. All questions were answered. Preoperative medications were administered: Acetaminophen 1000mg, Celebrex 400mg, and Gabapentin 300mg. An adductor canal block was then administered by the anesthesia team in the PACU. Charles was taken back to the operating room. A general anesthestic was then administered. The patient was placed into the supine position on the operating room table. A nonsterile tourniquet was placed high onto the leg. Posts were placed for positioning during the procedure. All bony prominences were well padded. Prophylactic antibiotics in the form of Cefazolin were administered. 1g of Tranxemic Acid was given intravenously within 30 minutes of incision. The right leg was then prepped with Chloraprep and draped in a standard fashion with impervious stockinette. A second prep with Chloraprep was performed prior to application of Iodine impregnated skin protection. A timeout to confirm correct identity, side and site, procedure, allergies, anesthesia, and medical concerns was performed. With the knee in some flexion, the previous midline incision was made overlying the knee. Full thickness skin flaps were raised once the extensor mechanism was encountered. These were raised medially and laterally in a full thickness fashion. This natural tissue plane was very difficult to define as there was adhesion of all the subcutaneous tissue against the extensor mechanism. Any bleeding was controlled with electrocautery. Once the extensor mechanism was fully exposed, a medial parapatellar arthrotomy was performed in a flexed position. All bleeding from the arthrotomy and the geniculate arteries was coagulated. An aggressive complete synovectomy was then performed superiorly, medially, and laterally. Scarring from the fat pad and a portion of the fat pad was removed as well. The knee was then flexed up and the previous polyethylene was removed. Additional synovectomy was performed within the gutters medially and laterally. There was a large amount of dense and adherent synovium and scar tissue which was resected progressively. Attention was then turned to removal of the previous implants. Starting with the femur the interface between the bone and the implant was identified. I started with a small oscillating saw to free up the interface between the implant and the bone. Then, utilizing flexible osteotomes I went around the entirety of the femoral component to remove any remaining attachments of the component to the underlying bone. This was done sequentially in a stepwise fashion throughout. There was minimal resistance to this process of removal. Then utilizing a bone tamp on the end of the implant as well as anteriorly, was able to remove the femoral component with minimal bone loss. The bone and release this was inspected. Any remnant cement was removed from the femoral surface utilizing a rongeur. Then, attention was turned to the tibia. Once again, utilizing a set of flexible osteotomes I worked on the tibial component from the underlying bone. This was done around the periphery of the component until was felt that it was sufficiently freed. Utilizing a bone tamp from under the lip of the tibia I was able to remove the tibial component. Once again, this was inspected and showed no significant signs of bone loss or fracture. There was no significant resistance to removal and the cement easily came off with the implant except for a portion around the keel. Additionally there was eburnated bone under the cement laterally and posteriorly. Cement was then removed from the proximal tibia utilizing a small straight osteotome. Small cruciate emery were made and the cement and the cement was removed from the bone trying to disturb his little bone as possible underneath the cement. This is also taken down into the canal where the osteotome was utilized to break through the distal plug of cement which was removed. Utilizing curved osteotomes as well as curettes, was able to remove the remaining cement from the proximal tibia. A posterior synovectomy was also performed there was better visualization. Any remnant inflamed synovium and necrotic tissue was debrided fully. Starting with the tibia, the tibial canal was reamed by hand. This was taken up until there is adequate cortical engagement. The reamer was left in place. The proximal aspect of the tibia was then utilizing a cut guide based on the reamer shaft. Approximately 1 to 2 mm was taken off the proximal tibia. Peripheral soft tissues were protected with appropriate retractors. The tibial tray was placed, appropriately rotated and pinned in position. The proximal aspect was reamed and the keel was punched. Attention was turned to the femur where the femoral canal was reamed by hand as well. This was ensured to be starting in a central slightly posterior position to avoid anterior notching. This was taken up to a size 14mm reamer. Initial plan was to distalize the femur and this was accounted for during the reaming and broaching process for appropriate joint line. A freshening cut was made over the distal aspect of the femur removing no more than 2 mm of bone for a fresh, flat distal femur surface. Broaching was then performed by hand. This was taken up until there was rotational and axial control of the broach. This was left in position and the distal cutting device was attached. Extension and flexion gaps were then assessed. Rotation of the femoral component was set with the tibia in 90 degrees. The posterior cuts were then assessed. This showed no augments were necessary. The anterior and posterior chamfers were cut. The central portion of the jig was then removed and the notch was cut. Trial implants were then inserted. The knee was taken through range of motion. This showed stability with a 14mm polyethylene insert. The trial femur was removed. The distal aspect of the femur was reamed with an 18 mm reamer to account for the size of the femoral boss. The trial tibial implant was removed. The tibia and the femur were both prepped for cementless cone components. A size medium was prepped on the tibia and a size small on the femur. The final components, except for the polyethylene were opened on the back table. The periosteal and capsular tissues, especially posteriorly, around the knee were then systematically injected with a periarticular cocktail consisting of 246mg of Ropivacaine, 0.5mg of Epinephrine, 0.08mg of Clonidine, and 30mg of Ketorolac, diluted to 100cc. The knee was thoroughly irrigated with a pulse lavage and dried. On the back table, the implants were opened. They are prepared according to steel fixer recommendations. Cement restrictor's were placed in the femoral and tibial canals. The cementless cones were impacted in position. Now with the implants opened, the cement was mixed. 3 batches of medium viscosity cement were prepared with vacuum assistance. Cement was placed onto the backside of the tibial tray and keel. Cement was also placed on the backside the femur. Utilizing the cement gun cement was inserted into the tibial canal allowing the cement to push the cement gun out of the canal. This was lightly pressurized. Then, the tibial component was inserted. This was done without difficulty and impacted onto the cut surface of the tibia. The seem to rest completely on the cut tibial surface. Excess cement was removed. It was ensured to be down against the cut surface. Next, cement was manually impacted onto the cut surface of the distal femur and the cement gun was utilized to insert cement into the canal. This was pressurized with a finger.. The femoral component was then inserted utilizing the femoral component for rotational control. This was impacted into position. Excess cement was removed. The trial polyethylene was then inserted and the leg was brought out into full extension for the duration of the cement curing process, approximately 18min. During this process attention was turned to the gutters of the knee and for all interfaces for any excess cement. While the cement was hardening, the knee was irrigated with Surgiphor Betadine solution. This was allowed to sit in the knee for 3 minutes and then it was thoroughly irrigated with saline. After the cement had finally cured, approximately 18min, the clamp was removed from the patella and the knee was taken through range of motion. A size 14mm polyethylene component provided the best range of motion and stability with less than 2mm gapping with medial and lateral stress and full extension without significant hyperextension. The patella was tracking with a no-thumbs technique. The trial poly was removed and once again the knee was checked for any loose, excess, or errant cement. The poly component was then inserted into position after cleaning and drying the tibial tray. The capsule was then reapproximated with a #2 FiberWire at critical points of the arthrotomy as well as no. 1 Vicryl at multiple locations in the more proximal locations. The capsule was finally closed and reinforced with a No. 2 Stratafix, barbed suture. Deep tissues were then reapproximated with 0 Vicryl and 2-0 Vicryl. The skin was closed with a running 3-0 Monocryl in a subcuticular fashion. This was reinforced with skin glue. A Mepilex silver dressing was applied along with a [id number] [place] wrap. A CryoCuff was applied. Charles was transferred to the hospital bed without difficulty an suffering no apparent complication. Charles has a good prognosis. Physical therapy will start today and without restrictions, weight-bearing as tolerated. Aspirin 81mg BID will be used for DVT prophylaxis. Date of Procedure: 02/09/25
--- NOTE | 2025-02-09 16:55 | W.PC.ACHO ---
Registration Status: ADM IN Primary Language: Preferred Language: Uzbek Medical / Surgical History (Last Updated 02/09/25 @ 10:34 by Rosemarie Matos) Tendinitis of long head of biceps brachii of left shoulder Hemorrhoids Heart murmur (Last Reviewed 02/09/25 @ 10:32 by Rosemarie Matos) History of appendectomy History of right knee joint replacement (~11/2017) [facility] (12/15/14) Colonoscopy - [facility] (02/08/16) Most Recent Vital Signs Temperature 36.4 C L 02/09/25 16:15 Temperature Source Temporal Artery Scan 02/09/25 11:45 Pulse 68 02/09/25 16:15 Pulse Rhythm Regular 02/09/25 16:15 Pulse 69 02/09/25 15:51 Respiratory Rate 16 02/09/25 16:15 Respiratory Effort Normal, Non-Labored 02/09/25 16:15 Respiratory Depth Normal 02/09/25 16:15 Respiratory Pattern Normal 02/09/25 16:15 Blood Pressure 111/48 L 02/09/25 16:15 Blood Pressure Mean 67 02/09/25 15:51 Blood Pressure Position Supine 02/09/25 11:45 Pulse Oximetry 96 02/09/25 16:15 Respiratory End-tidal CO2 39 02/09/25 15:51 Oxygen Delivery Method Room Air 02/09/25 16:15 Oxygen Flow Rate 0 02/09/25 16:15 Pain Level 5 02/09/25 15:54 Allergies No Known Allergies Allergy (Verified 02/09/25 10:25) Active Medications Generic Name Dose Route Start Last Admin Trade Name Freq PRN Reason Stop Dose Admin Acetaminophen 1,000 mg 02/09/25 06:00 02/09/25 10:39 Acetaminophen 500 Mg Tab PO 02/09/25 23:59 1,000 mg PREOP LAZARO Administration Acetaminophen 1,000 mg 02/09/25 14:00 02/09/25 16:49 Acetaminophen 500 Mg Tab PO Not Given TID LAZARO Celecoxib 400 mg 02/09/25 06:00 02/09/25 10:39 Celecoxib 200 Mg Cap PO 02/09/25 23:59 400 mg PREOP LAZARO Administration Gabapentin 300 mg 02/09/25 06:00 02/09/25 10:40 Gabapentin 300 Mg Cap PO 02/09/25 23:59 300 mg PREOP LAZARO Administration Ringer's Solution 1,000 mls @ 80 mls/hr 02/09/25 06:00 02/09/25 15:56 IV 02/09/25 23:59 80 mls/hr INFUSION LAZARO Infusion Cefazolin Sodium 3,000 mg/ 100 mls @ 200 mls/hr 02/09/25 06:00 02/09/25 12:10 Sodium Chloride IV 02/09/25 23:59 Infused PREOP LAZARO Infusion IV IV Catheter Type [Right Peripheral IV Forearm] IV Catheter Gauge [Right 20 Forearm] Diet Orders Category Date Time Status Regular/Normal [DIET] Nutrition 02/09/25 Lunch Active Intake and Output - 24 Hour Total 11/03/24 08:50 thru 02/09/25 16:15 Intake Total 850 Output Total 300 Balance 550 Weight 91.172 kg Intake: IV 850 Output: Estimated Blood Loss 300 Other: Emesis Description None Falls Risk Assessment History of Falls No History 02/09/25 16:15 Contributing Factors Impairments,Medications 02/09/25 16:15 Ambulatory Aids Uses ambulatory device 02/09/25 16:15 Tubes/Lines W/no contributing factors 02/09/25 16:15 Gait Evaluation W/no contributing factors 02/09/25 16:15 Cognition No cognitive impairment 02/09/25 16:15 Fall Total Score 41 02/09/25 16:15 Level of Risk Moderate Risk 02/09/25 16:15 Attestation Statement: By documenting the first initial, last name, and credentials of the reporting nurse below, both parties acknowledge that all relevant information regarding the patient handoff has been communicated, and that all questions have been addressed to ensure continuity and safety of care. Additional Patient Information/Comments: pt arrived with teds, scds, cryocuff on Report Received From: Karissa Hillman AUDIO VISUAL FACILITIES ENGINEER
--- NOTE | 2025-02-09 16:57 | IN_ITS ---
PT Notes Visit Reasons: Painful right TKA Physical Therapy Inpatient Initial Evaluation Date: 02/09/2025 Referring Doctor: YESENIA Green PT Orders: PT CONSULT: S/P Ortho Surgery Precautions: Fall. Standard. Activity as tolerated. Patient Profile/Admitting Diagnosis: Charles is a 64-year-old male patient with previous R TKA by Dr Hernandez back in 2018 with aseptic mechanical loosening and arthrofibrosis of R TKA prosthesis S/P R total knee revision on postoperative day 0. PMHX: All Active Problems (Updated 12/25/24 @ 09:12 by Elaine Ryan) Localized osteoarthritis of left knee (Chronic) 80 mg Depo-medrol inj: 12/25/24 Mechanical loosening of internal right knee prosthetic joint (Acute) Arthrofibrosis of total knee arthroplasty (Acute) Erectile dysfunction (Acute) Prostate cancer (Chronic) Status post reverse total replacement of left shoulder (Acute 01/25/22) Follow up (Acute) Left rotator cuff tear (Acute) Arthritis of left glenohumeral joint (Acute) Problems related to lack of adequate sleep (Acute) Ventricular ectopy (Acute) Elevated PSA (Acute) Bicuspid aortic valve (Acute) Hypertension (Chronic) Aortic root dilation (Acute) Rosacea (Acute) Medical History Tendinitis of long head of biceps brachii of left shoulder Hemorrhoids Heart murmur Surgical History History of appendectomy History of right knee joint replacement (~11/2017) [facility] (12/15/14) [facility] [place]) Social History/Home Situation: Lives with in a private home with 2 steps to enter with no rails. Equipment Owned/DME: F[employer] Subjective: Agreeable to getting up and walking a little bit prior to having supper. Objective: General Observation: [place] wraps to R LE. Cryocuff to R knee. TEDS to L leg and foot. Mental Status: Alert and oriented as to person, place, time, and purpose. Able to pay attention, focus, and respond appropriately. Pain: 3-4/10 in the R knee with rest and with movement Vital Signs: WNL as closely monitored by nursing staff ROM: Left Lower Extremity: Hip flexion WFL. Hip abduction WFL. Knee flexion WFL. Ankle dorsiflexion WFL. Ankle plantarflexion WFL. Right Lower Extremity: Hip flexion WFL. Hip abduction WFL. Knee flexion 20 degrees to 90 degrees. Knee extension -20 degrees. Ankle dorsiflexion WFL. Ankle plantarflexion WFL. Strength: Left Lower Extremity: Hip flexors 5/5. Hip abductors 5/5. Knee flexors 5/5. Knee extensors5 /5. Ankle dorsiflexors 5/5. Ankle plantarflexors 5/5. Right Lower Extremity: Hip flexors 4-/5. Hip abductors 4-/5. Knee flexors 3-/5. Knee extensors 3-/5. Ankle dorsiflexors 4/5. Ankle plantarflexors 4/5. Bed Mobility/Transfers: Minimal cueing provided for use of B hands as needed for support, movement sequence, AD management, and posture to reduce fall risk and minimize pain report Supine to sit stand by assist with HOB at 20 degrees Sit to stand contact guard assist using FWW Stand to sit contact guard assist using FWW Bed to reclining contact guard assist using FWW Reclining chair to bed contact guard assist using FWW Gait: 10 steps using FWW with contact guard assist with no report of increased pain in the R knee. denied headache, chest pain, and lightheadedness throughout session. Distance limited by arrival of supper which the patient was looking forward to having as he has not had anything to eat since last night. Stairs: Not done today Balance: Static Sitting: Normal Dynamic Sitting: Normal Static Standing: Fair Dynamic Standing: Fair Special Tests: Mobility Limitations Standardized Measure [facility] AM-PAC 6 clicks Basic Mobility Inpatient Short Form: Raw Score: 22 CMS Score: 21% deficit Informed Consent/Education: Patient was instructed in purpose of PT consult and plan of care. Agreeable to proceed with established PT POC to achieve personal goals. Trained patient with correct performance of exercises below to maximize motor control, joint flexibility, soft tissue extensibility of the R knee musculature: Access Code: [email or web address] URL: [email or web address] Date: 02/10/2025 Prepared by: Mari Shravan Exercises - Supine Quad Set - 1 x daily - 7 x weekly - 1 sets - 10 reps - 5 hold - Supine Heel Slide - 1 x daily - 7 x weekly - 1 sets - 10 reps - 5 hold - Supine Ankle Pumps - 1 x daily - 7 x weekly - 1 sets - 10 reps - 5 hold - Small Range Straight Leg Raise - 1 x daily - 7 x weekly - 1 sets - 10 reps - 5 hold - Seated March - 1 x daily - 7 x weekly - 1 sets - 10 reps - 5 hold Assessment: Patient required the use of a front-wheeled walker for all mobility ADL performance to maximize independence and reduce fall risk. Patient presents with clinical signs and symptoms consistent with current/admitting diagnoses that have resulted to mobility limitations, gait instability, generalized weakness, and overall ADL decline as demonstrated by the following impairment level findings: 1. Decreased strength to R knee major muscle groups 2. Impaired standing balance 3. Impaired activity tolerance 4. Limitation of joint range of motion in R knee Impairments are contributing to the following functional limitations: 1. Decline in bed mobility skills 2. Decline in transfer skills 3. Difficulty with ambulation without assistive device 4. Increased completion time for mobility ADL performance 5. Increased risk for falls 6. Difficulty with managing steps alone safely Patient is assessed as a 31568 moderate complexity based on the following: History: 64-year-old male with past medical history as indicated above Examination: Demonstrable impairment in strength, balance, and mobility level with underlying impairments and functional limitations as exhibited above as well as deficit score of 21% utilizing the [facility] Mobility Inpatient Short Form Presentation: Evolving Decision Makin moderate complexity Goals: Goals X1 week 1. Supine-Sit independent 2. Sit-Supine independent 3. Sit-Stand independent 4. Stand-Sit independent with FWW 5. Bed-Chair independent with FWW 6. Chair-Bed independent with FWW 7. Independent gait on level surface with use of FWW for at least 300 feet without report of pain nor dyspnea 8. Independent stair negotiation while holding onto B rails for at least 5 steps without report of pain nor dyspnea 9. Independent with home exercise program 10. Good static and dynamic standing balance/tolerance Plan of Care/Treatment Plan: 1-2x/day, 7 days/week x 1 week. Plan of care has been reviewed with the LABORATORY SUPERVISOR providing the service under Physical Therapy direction. Initiate Physical Therapy intervention for pain management as needed, strengthening, bed mobility, transfers, gait, stairs, balance training, and use of assistive device. DISCHARGE RECOMMENDATIONS: 19629 x 20 minutes for 1 unit, 59597 x 12 minutes for 1 unit (16:57-17:29). TREATMENT CODE/TIME: Home when medically cleared by orthopedic surgeon. Recommend outpatient PT services in order to optimize functional mobility outcomes and facilitate return to independent community ambulation without an assistive device. Thank you for the opportunity to participate in the care of this patient. Mari Cheney PT, DPT, CLT [facility] [place], [place]
--- NOTE | 2025-02-09 16:57 | W.ANESPOSTOP ---
Postoperative Evaluation Date, Time and Location Date Performed: 02/09/25 Time Performed: 15:50 Patient Location: PACU Vital Signs Most Recent Imported Vital Signs: Most Recent Vital Signs Temp Pulse Resp BP Pulse Ox 36.4 C L 68 16 111/48 L 96 02/09/25 16:15 02/09/25 16:15 02/09/25 16:15 02/09/25 16:15 02/09/25 16:15 Pain Score Most Recent Pain Score: Most Recent Pain Score Pain Level 5 02/09/25 15:54 Assessment Mental Status: Awake (Alert & Oriented to Patient Baseline) Airway and Respiratory Function: Patent airway with normal (patient baseline) respiratory exam Cardiovascular Function: Hemodynamically Stable Hydration Status: Adequately Hydrated Nausea & Vomiting: No Nausea or Vomiting Pain: Pain is tolerable per patient Peripheral Nerve Block: Regional nerve block not resolved at time of post operative discharge
[2025-02-09] MEDS: oxyCODONE 5 MG TAB PO ×2 (17:44→23:29)
[2025-02-09] MEDS: Tranexamic Acid 650 MG TAB 1300 MG PO (21:27)
[2025-02-09] MEDS: ceFAZolin 1 GM/50 ML BAG IVPB (21:27)
[2025-02-09] MEDS: Celecoxib 200 MG CAP PO (21:27)
[2025-02-09] MEDS: Aspirin E.C. 81 MG TABEC PO (21:28)
[2025-02-10 03:15] VITALS: BP 102/61; PULSE 75; TEMP 36.2; O2SAT 92
[2025-02-10] MEDS: ceFAZolin 1 GM/50 ML BAG IVPB (05:10)
[2025-02-10] MEDS: Normal Saline Flush 10 ML SYR IVP (05:10)
[2025-02-10] MEDS: oxyCODONE 5 MG TAB PO ×2 (05:17→08:43)
--- NOTE | 2025-02-10 07:34 | W.PM.DS.N ---
Date of service: 02/10/25 Time of Service: 07:31 DS: Diagnosis Discharge Diagnosis (1) Mechanical loosening of internal right knee prosthetic joint: Status: Acute Discharge Plan Disposition Patient Disposition: Home Condition: Good Discharge Details Reason For Visit: Painful right TKA Admit Date/Time: 02/09/25 09:34 Admit Provider: Harvinder Kidd Attending Provider: Harvinder Kidd Primary Care Provider: Yariel Ritter Hospital Course Hospital Course: Patient was admitted to the medical/surgical floor following the procedure. The surgery was tolerated well without any notable medical, surgical, or anesthetic complications. Mobilization began postoperatively. He was voiding spontaneously. Vitals were stable. Physical therapy worked with the patient and was cleared for discharge home. No acute medical issues. Pain was controlled on oral regimen. Home Meds and New Rx's Prescriptions: New acetaminophen 500 mg tablet 1,000 mg PO Q8H PRN (Reason: pain) Qty: 90 3RF aspirin 81 mg tablet,delayed release (DR/EC) 81 mg PO BID Qty: 60 0RF celecoxib 200 mg capsule 200 mg PO BID PRN (Reason: pain) Qty: 60 1RF docusate sodium [Colace] 100 mg capsule 100 mg PO BID PRNQty: 10 0RF pantoprazole 40 mg tablet,delayed release (DR/EC) 40 mg PO DAILY Qty: 30 0RF dexamethasone 4 mg tablet 4 mg PO DAILY Qty: 2 0RF Rx Instructions: Starting Post-Operative Day #1 (Day after surgery) gabapentin 300 mg capsule 300 mg PO QHS Qty: 14 0RF oxycodone 5 mg tablet 5 mg PO Q4H PRNQty: 18 0RF No Action naproxen sodium [Aleve] 220 mg tablet 220 mg PO BID PRN metronidazole 0.75 % cream 1 applic topical DAILY lorazepam 0.5 mg tablet 0.5 mg PO DAILY PRN (Reason: pre-medication for MRI) Qty: 2 0RF Rx Instructions: Take one tab 30 mins prior to MRI. May repeat right before MRI if needed tadalafil [Cialis] 20 mg tablet 20 mg PO DAILY MDD 1 tab (20mg) PRN (Reason: sexual activity) Qty: 10 6RF Rx Instructions: administer at least approximately 30min before sexual activity; do not use more than 1 dose per 24hrs. Do not use viagra at same time. Discharge Instructions Additional Instructions: Revision Total Knee Discharge Instructions Activity: The most important activity is to walk and to work on gentle motion (both flexion and extension). You should try to take short walks a few times a day. It is important that when resting you work on keeping the knee straight. Avoid putting a pillow behind the knee as this will encourage flexion. Work on range of motion exercises as provided by Physical Therapy. - Start outpatient physical therapy within 2 weeks. - You should wear the LISA hose on both legs for 2 weeks. You may remove these at night. You may also use any compression sock in place of the LISA hose. - Utilize [employer] to review exercises, see videos on exercises and obtain basic information pertaining to your surgery and your recovery. Dressing: Remove the Jayson wrap by 2 days after your surgery and put on the LISA stocking given to you from the hospital. Keep the surgical dressing (underneath the JAYSON wrap) in place for at least one week. After the first week it may be removed and replaced with light gauze and tape or nothing. The wound and dressing may get wet after 3 days but avoid soaking the dressing or otherwise it will need to be changed. Many people prefer covering the dressing with cling wrap (saran wrap) to minimize it from getting soaked. If it gets wet, just pat dry. If it starts to peel off then it will need to be changed. Medications: - You should take Tylenol and anti-inflammatory Celebrex as your primary pain control medications. You will discontinue the Aleve/Naproxen while taking Celebrex. If the Celebrex is too expensive or not covered, please call the office for another alternative (Advil/Ibuprofen or Naproxen/Aleve). - You have been prescribed a stronger pain medication Oxycodone for breakthrough pain, take as needed as prescribed. - You have also been prescribed a stomach acid reduction agent Pantoprozole to help reduce stomach acid and reflux. - You have been prescribed Gabapentin to take at night for restlessness and nerve pain. - You will be taking Aspirin 81mg twice a day for DVT prevention unless instructed otherwise. - You have also been prescribed Decadron to take to control post-operative nausea and pain. You will start this tomorrow. - If you have constipation you should take Colace or Miralax (both [id number]). It takes most people 3-4 days to have a bowel movement. Follow-up: 2 weeks If you have any acute concerns or questions, please do not hesitate to contact the office at [phone]. You may contact Dr. Kidd with any questions after hours through the hospital at [phone] or on his cell phone at [phone]. Stand Alone Forms: Portal Information Activity:: Activity as Tolerated Equipment/Supplies:: Walker Diet:: As Tolerated Discharge Orders Discharge Orders: Discharge Order (Routine); Ordered 02/10/25 Ordered By: Harvinder Kidd DS: Summary Time Spent with Patient providing and/or coordinating discharge services: Less than 30 minutes Status at Discharge Functional status at discharge: uses cane/walker Overall status at discharge: patient is progressing back to baseline Mental Status: mental status grossly normal Speech and Movement: speech and movement normal Mood: congruent mood Affect: normal affect Exam Narrative Exam Narrative: Resting comfortably in the chair. No acute distress. Alert and orient x 3. Right lower extremity dressings clean dry and intact. He is able to straight leg raise without a lag. Range of motion is 5-90. Sensation intact to light touch over the deep and superficial peroneal nerve and tibial nerve. Intact ankle dorsiflexion and plantarflexion. Psych Mental Status: mental status grossly normal Speech and Movement: speech and movement normal Mood: congruent mood Affect: normal affect PFSH All Active Problems (Updated 02/09/25 @ 10:34 by Rosemarie Matos) H/O inguinal hernia repair (Acute) 02/2024 [facility] Localized osteoarthritis of left knee (Chronic) 80 mg Depo-medrol inj: 12/25/24 Mechanical loosening of internal right knee prosthetic joint (Acute) Arthrofibrosis of total knee arthroplasty (Acute) Erectile dysfunction (Acute) Prostate cancer (Chronic) Status post reverse total replacement of left shoulder (Acute 01/25/22) Follow up (Acute) Left rotator cuff tear (Acute) Arthritis of left glenohumeral joint (Acute) Problems related to lack of adequate sleep (Acute) Ventricular ectopy (Acute) Elevated PSA (Acute) Hypertension (Chronic) Aortic root dilation (Acute) Bicuspid aortic valve (Acute) Rosacea (Acute) Medical History (Updated 02/09/25 @ 10:34 by Rosemarie Matos) Tendinitis of long head of biceps brachii of left shoulder Hemorrhoids Heart murmur Surgical History History of appendectomy History of right knee joint replacement (~11/2017) OPEN RIH (12/15/14) RACHAEL GRAY Colonoscopy - MAC (02/08/16) Family History Mother , at age 73 from cardiac arrest. No problems noted. Brother Heart disease [place]. Father Cancer Social History Smoking/Tobacco Use Status: Never Smoking risk assessment performed?: Yes Alcohol Intake: current Alcohol Intake frequency: a few times a month Drug use: Never Substance use type: does not use Housing: house Current gender identity: male What type of physical activity do you participate in: walking, independent ambulation and normal ROM and activity Additional Social history: [facility] Time Spent with Patient Time Spent with Patient: <45 minutes Time was spent: preparing to see the patient(eg.review tests), obtaining and/or reviewing separately otained hiistory, indepentently interpreting results and counseling the patient
[2025-02-10 08:05] VITALS: BP 119/61; PULSE 84; RESP 18; TEMP 36.7; O2SAT 97
[2025-02-10] MEDS: Celecoxib 200 MG CAP PO (08:37)
[2025-02-10] MEDS: Acetaminophen 500 MG TAB 1000 MG PO (08:37)
[2025-02-10] MEDS: Dexamethasone 4 MG TAB PO (08:38)
[2025-02-10] MEDS: Pantoprazole 40 MG TABCR PO (08:38)
[2025-02-10] MEDS: Aspirin E.C. 81 MG TABEC PO (08:38)
--- NOTE | 2025-02-10 09:32 | PDOC.CMPRO ---
Date of service: 02/10/25 Time of Service: 09:33 Care Management Progress Note Progress Note Text Progress Note Text: Charles was admitted on 02/09/25 for a right total knee revision. The surgery went well and Charles was able to work with PT the next morning. He was discharged home and will follow up with his orthopedic surgeon in 2 weeks. Social Determinants of Health Screening Will the Patient Participate in the Screening?: Unable to obtain
== END 2025-02-10 09:26 | disposition home or self-care (01) | DRG 467 ==
LOC: PDS 14:00 → MS 16:48 → PDS 02-10 07:37 → MS 02-10 07:37
PROVIDERS: Admitting Provider Student in an Organized Health Care Education/Training Program; PCP Family Medicine; Visit Provider Student in an Organized Health Care Education/Training Program
PROC: 0SPC0JZ Removal of Synthetic Substitute from Right Knee Joint, Open Approach (ICD-10-PCS; CPT 27487; principal; 2025-02-09 12:00)
DX: T84.032A Mechanical loosening of internal right knee prosthetic joint, initial encounter (principal); Q23.1 Congenital insufficiency of aortic valve; G89.18 Other acute postprocedural pain; I10 Essential (primary) hypertension; Z79.899 Other long term (current) drug therapy; T84.82XA Fibrosis due to internal orthopedic prosthetic devices, implants and grafts, initial encounter; Z96.612 Presence of left artificial shoulder joint; L71.9 Rosacea, unspecified; Z85.46 Personal history of malignant neoplasm of prostate; E66.9 Obesity, unspecified; I35.2 Nonrheumatic aortic (valve) stenosis with insufficiency
CPT/HCPCS: 27487; 64447; 64450; 97162; 97530; 73560; C1776; J0665; J0666; J0690; J1100; J2250; J2405; J2704; J3010; J3475; J8540

== ENCOUNTER 2025-02-22 15:26 | Outpatient (CLI) | payer MEDICARE, BC, SELFPAY ==
--- NOTE | 2025-02-22 10:00 | DI.RAD_ITS ---
Exam(s) XR KNEE RT 2V AP,LAT EXAM: XR KNEE RT 2V AP,LAT INDICATION: F/U REVISION RIGHT TKA. COMPARISON: CR XR KNEE RT 2V AP,LAT from 02/09/2025 TECHNIQUE: 2D digital imaging was performed. Two views. FINDINGS: There is stable alignment of the revised knee prosthesis. There are no abnormal bony lucencies. There is mild soft tissue swelling. DATA REPOSITORY: RADIATION DOSE DELIVERED:
== END 2025-02-22 15:27 | disposition home or self-care (01) ==
LOC: DIORS 15:26
PROVIDERS: PCP Family Medicine; Referring Provider Family Medicine; Visit Provider Student in an Organized Health Care Education/Training Program
DX: T84.032D Mechanical loosening of internal right knee prosthetic joint, subsequent encounter (principal)
CPT/HCPCS: 99024; 73560